=== PATIENT | male | born 1965 | race Caucasian/White ===

== ENCOUNTER 2018-11-04 10:16 | Emergency (ER) | payer OTHER ==
[2018-11-04] MEDS ORDERED: fentaNYL 100 MCG/2 ML SDV IVPUSH ONE (10:38)
[2018-11-04] MEDS ORDERED: Sodium Chloride 0.9% 1,000 ML IV ONE (10:38)
[2018-11-04] MEDS ORDERED: Ondansetron 4 MG/2 ML SDV IVPUSH ONE (10:38)
--- NOTE | 2018-11-04 10:49 | EDM.PDOC ---
ED HPI GENERAL MEDICAL PROBLEM - General Chief Complaint: Abdominal Pain Stated Complaint: RT LOWER STOMACH PAIN Time Seen by Provider: 11/04/18 10:21 Source of Information: Reports: Patient History Limitations: Reports: No Limitations - History of Present Illness INITIAL COMMENTS - FREE TEXT/NARRATIVE: HISTORY AND PHYSICAL: History of present illness: Presents reporting lower abdominal pain mostly in the right lower quadrant for the last 2-3 days. Also reports malaise, nausea but no vomiting and chills and hot flushes. 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 He had similar symptoms in March 2018. A CT scan of the abdomen and pelvis at that time indicated diverticulosis and fatty liver but no other acute or chronic findings. Also has a history of acid reflux which he manages with Tums. Review of systems: As per history of present illness and below otherwise all systems reviewed and negative. Past medical history: As per history of present illness and as reviewed below otherwise noncontributory. Surgical history: As per history of present illness and as reviewed below otherwise noncontributory. Social history: No reported history of drug or alcohol abuse. Family history: As per history of present illness and as reviewed below otherwise noncontributory. Physical exam: HEENT: Atraumatic, normocephalic, pupils reactive, negative for conjunctival pallor or scleral icterus, mucous membranes moist, throat clear, neck supple, nontender, trachea midline. Lungs: Clear to auscultation, breath sounds equal bilaterally, chest nontender. Heart: S1S2, regular, negative for clicks, rubs, or JVD. Abdomen: Soft, nondistended, nontender. Negative for masses or hepatosplenomegaly. Negative for costovertebral tenderness. Pelvis: Stable nontender. Genitourinary: Deferred. Rectal: Deferred. Extremities: Atraumatic, negative for cords or calf pain. Neurovascular unremarkable. Neuro: Awake, alert, oriented. Cranial nerves II through XII unremarkable. Cerebellum unremarkable. Motor and sensory unremarkable throughout. Exam nonfocal. Diagnostics: [] Therapeutics: [] Impression: [] Plan: [] Definitive disposition and diagnosis as appropriate pending reevaluation and review of above. Right abdominal Pain Score (Numeric/FACES): 8 - Related Data Allergies Allergy/AdvReac Type Severity Reaction Status Date / Time No Known Allergies Allergy Verified 11/04/18 10:24 Home Meds: Home Meds Ciprofloxacin HCl [Cipro] 1 tab PO BID #9 tablet 11/04/18 [Rx] metroNIDAZOLE [Metronidazole] 1 tab PO BID #9 tablet 11/04/18 [Rx] Past Medical History - Past Health History Medical/Surgical History: Denies Medical/Surgical History - Infectious Disease History Infectious Disease History: Reports: None Social & Family History - Family History Family Medical History: Noncontributory - Tobacco Use Smoking Status *Q: Current Every Day Smoker Years of Tobacco use: 30 Packs/Tins Daily: 0.5 - Caffeine Use Caffeine Use: Reports: Coffee - Recreational Drug Use Recreational Drug Use: No ED ROS GENERAL - Review of Systems Review Of Systems: ROS reveals no pertinent complaints other than HPI. ED EXAM, GI/ABD - Physical Exam Exam: See Below Exam Limited By: No Limitations General Appearance: Alert, No Apparent Distress Ears: Normal External Exam, Normal TMs Nose: Normal Inspection Throat/Mouth: Normal Inspection, Normal Teeth, Normal Oropharynx Head: Atraumatic, Normocephalic Neck: Normal Inspection Respiratory/Chest: No Respiratory Distress, Lungs Clear, Normal Breath Sounds Cardiovascular: Normal Peripheral Pulses, Regular Rate, Rhythm, No Murmur GI/Abdominal Exam: Normal Bowel Sounds, Soft, No Distention, Tender (Low midline of right lower quadrant) (Male) Exam: No Hernia, Normal Inspection Back Exam: Normal Inspection Extremities: Normal Inspection Neurological: Alert, Oriented Psychiatric: Normal Affect, Normal Mood Skin Exam: Warm, Dry, Intact, Normal Color, No Rash Lymphatic: No Adenopathy Course - Vital Signs Last Recorded V/S: Last Vital Signs Temp 36.2 C 11/04/18 12:14 Pulse 87 11/04/18 12:41 Resp 18 11/04/18 12:41 BP 154/93 H 11/04/18 12:41 Pulse Ox 98 11/04/18 12:41 - Orders/Labs/Meds Orders: Active Orders 24 hr Category Date Time Status Ciprofloxacin in D5W [Cipro in D5W 400 MG/200 ML] 400 Med 11/04/18 12:30 Ordered mg Premix Bag 1 bag IV Q12H metroNIDAZOLE/Normal Saline [Flagyl 500 MG in NS 100 ML Med 11/04/18 12:24 Ordered ] 500 mg Premix Bag 1 bag IV ONETIME Medication Orders Metronidazole 500 mg/ Premix 100 mls @ 100 mls/hr IV ONETIME ONE Stop: 11/04/18 13:23 Last Admin: 11/04/18 12:37 Dose: 100 mls/hr Ciprofloxacin/Dextrose 400 mg/ (Premix) 200 mls @ 200 mls/hr IV Q12H ONE Stop: 11/04/18 13:29 Labs: Laboratory Tests 11/04/18 11/04/18 11/04/18 Range/Units 10:38 10:38 10:45 WBC 17.50 H (4.0-11.0) K/uL RBC 4.73 (4.50-5.90) M/uL Hgb 16.0 (13.0-17.0) g/dL Hct 46.9 (38.0-50.0) % MCV 99.2 H (80.0-98.0) fL MCH 33.8 H (27.0-32.0) pg MCHC 34.1 (31.0-37.0) g/dL RDW Std Deviation 48.2 (28.0-62.0) fl RDW Coeff of Adamaris 13 (11.0-15.0) % Plt Count 224 (150-400) K/uL MPV 11.50 (7.40-12.00) fL Neut % (Auto) 82.9 H (48.0-80.0) % Lymph % (Auto) 9.1 L (16.0-40.0) % [place] % (Auto) 7.6 (0.0-15.0) % Eos % (Auto) 0.3 (0.0-7.0) % Baso % (Auto) 0.1 (0.0-1.5) % Neut # (Auto) 14.5 H (1.4-5.7) K/uL Lymph # (Auto) 1.6 (0.6-2.4) K/uL [place] # (Auto) 1.3 H (0.0-0.8) K/uL Eos # (Auto) 0.1 (0.0-0.7) K/uL Baso # (Auto) 0.0 (0.0-0.1) K/uL Nucleated RBC % 0.0 /100WBC Nucleated RBCs # 0 K/uL Sodium 138 (136-148) mmol/L Potassium 4.0 (3.5-5.1) mmol/L Chloride 104 (98-107) mmol/L Carbon Dioxide 23.6 (21.0-32.0) mmol/L BUN 8 (7.0-18.0) mg/dL Creatinine 1.0 (0.8-1.3) mg/dL Est Cr Clr Drug Dosing 80.79 mL/min Estimated GFR (MDRD) > 60.0 ml/min Glucose 132 H (74-106) mg/dL Calcium 9.4 (8.5-10.1) mg/dL Total Bilirubin 1.8 H (0.2-1.0) mg/dL AST 21 (15-37) IU/L ALT 39 (14-63) IU/L Alkaline Phosphatase 77 (46-116) U/L Total Protein 7.5 (6.4-8.2) g/dL Albumin 3.9 (3.4-5.0) g/dL Globulin 3.6 (2.6-4.0) g/dL Albumin/Globulin Ratio 1.1 (0.9-1.6) Urine Color YELLOW Urine Appearance CLEAR Urine pH 7.0 (5.0-8.0) Ur Specific [place] 1.010 (1.001-1.035) Urine Protein NEGATIVE (NEGATIVE) mg/dL Urine Glucose (UA) NEGATIVE (NEGATIVE) mg/dL Urine Ketones NEGATIVE (NEGATIVE) mg/dL Urine Occult Blood NEGATIVE (NEGATIVE) Urine Nitrite NEGATIVE (NEGATIVE) Urine Bilirubin NEGATIVE (NEGATIVE) Urine Urobilinogen 1.0 (<2.0) EU/dL Ur Leukocyte Esterase NEGATIVE (NEGATIVE) Urine RBC NONE SEEN (0-2/HPF) Urine WBC 1-2 (0-5/HPF) Ur Epithelial Cells RARE (NONE-FEW) Urine Bacteria FEW (NEGATIVE) Meds: Medications Generic Name Dose Route Start Last Admin Trade Name Freq PRN Reason Stop Dose Admin Metronidazole 500 mg/ Premix 100 mls @ 100 mls/hr 11/04/18 12:24 11/04/18 12: 37 IV 11/04/18 13:23 100 mls/hr ONETIME ONE Administration Ciprofloxacin/Dextrose 400 mg/ 200 mls @ 200 mls/hr 11/04/18 12:30 Premix IV 11/04/18 13:29 Q12H ONE Discontinued Medications Generic Name Dose Route Start Last Admin Trade Name Jose Gq PRN Reason Stop Dose Admin Fentanyl 50 mcg 11/04/18 10:38 11/04/18 10:47 Sublimaze IVPUSH 11/04/18 10:39 50 mcg ONETIME ONE Administration Sodium Chloride 1,000 mls @ 999 mls/hr 11/04/18 10:38 11/04/18 10:45 Normal Saline IV 11/04/18 11:38 999 mls/hr STAT ONE Administration Ondansetron HCl 4 mg 11/04/18 10:38 11/04/18 10:47 Zofran IVPUSH 11/04/18 10:39 4 mg ONETIME ONE Administration Departure - Departure Time of Disposition: 12:49 Disposition: Home, Self-Care 01 Clinical Impression: Diverticulitis - Discharge Information *PRESCRIPTION DRUG MONITORING PROGRAM REVIEWED*: Not Applicable *COPY OF PRESCRIPTION DRUG MONITORING REPORT IN PATIENT JOSE MARTIN: Not Applicable Referrals: PCP,Unknown [Primary Care Provider] - Robby Holman MD [Ordering Only Provider] - Forms: ED Department Discharge Additional Instructions: The following information is given to patients seen in the emergency department who are being discharged to home. This information is to outline your options for follow-up care. We provide all patients seen in our emergency department with a follow-up referral. The need for follow-up, as well as the timing and circumstances, are variable depending upon the specifics of your emergency department visit. If you don't have a primary care physician on staff, we will provide you with a referral. We always advise you to contact your personal physician following an emergency department visit to inform them of the circumstance of the visit and for follow-up with them and/or the need for any referrals to a consulting specialist. The emergency department will also refer you to a specialist when appropriate. This referral assures that you have the opportunity for follow-up care with a specialist. All of these measure are taken in an effort to provide you with optimal care, which includes your follow-up. Under all circumstances we always encourage you to contact your private physician who remains a resource for coordinating your care. When calling for follow-up care, please make the office aware that this follow-up is from your recent emergency room visit. If for any reason you are refused follow-up, please contact the [facility] Emergency Department at and asked to speak to the emergency department charge nurse. 1. Take your antibiotics twice daily 2. Return promptly for fevers, elevated heart rate, worsening or not improving pain 3. Follow-up in primary care for definitive management - My Orders Last 24 Hours: My Active Orders 11/04/18 12:24 metroNIDAZOLE/Normal Saline [Flagyl 500 MG in NS 100 ML] 500 mg Premix Bag 1 bag IV ONETIME 11/04/18 12:30 Ciprofloxacin in D5W [Cipro in D5W 400 MG/200 ML] 400 mg Premix Bag 1 bag IV Q12H - Assessment/Plan Last 24 Hours: My Active Orders 11/04/18 12:24 metroNIDAZOLE/Normal Saline [Flagyl 500 MG in NS 100 ML] 500 mg Premix Bag 1 bag IV ONETIME 11/04/18 12:30 Ciprofloxacin in D5W [Cipro in D5W 400 MG/200 ML] 400 mg Premix Bag 1 bag IV Q12H
[2018-11-04 11:14] LABS: BLOOD UREA NITROGEN,BUN 8 mg/dL (7.0-18.0); CARBON DIOXIDE,CO2 23.6 mmol/L (21.0-32.0); CHLORIDE,CL 104 mmol/L (98-107); GLUCOSE RANDOM 132 mg/dL (74-106); SODIUM,NA 138 mmol/L (136-148)
--- NOTE | 2018-11-04 12:13 | CT ---
INDICATION: Right lower quadrant pain for 2 days. Nausea, chills, difficulty urinating. COMPARISON: None available TECHNIQUE: CT examination of the abdomen and pelvis was performed without contrast enhancement using 3 mm thick axial sections from the lung bases through the pubic symphysis. Oral contrast was not administered. Please note that all CT scans at this facility use dose modulation, iterative reconstruction, and/or weight-based dosing when appropriate to reduce radiation dose to as low as reasonably achievable. FINDINGS: In the abdomen, the liver is low in density, representing fatty infiltration. There is no sign of mass. The spleen, pancreas and adrenals are normal in appearance. The unenhanced kidneys are normal in appearance. The gallbladder is normal in appearance. The abdominal aorta is normal in caliber with no sign of dilatation. There is no sign of retroperitoneal mass or adenopathy. The stomach, loops of small bowel, and right colon in the abdomen are normal in appearance. There is moderate diverticulosis of the descending colon. In the pelvis, the appendix is normal in appearance with no sign of inflammatory process. There is moderate inflammatory reaction around the midportion of the sigmoid colon, located to the right of midline in the upper pelvis, where there is moderate sigmoid diverticulosis. The findings are consistent with diverticulitis, without evidence of abscess formation or perforation. There is no sign of any fluid or extraluminal gas in the pericolonic fat. There is additional moderate sigmoid diverticulosis of the proximal sigmoid colon. The loops of small bowel and the rest of the colon in the pelvis are normal in appearance. The prostate is normal in appearance. The urinary bladder is normal in appearance. There is no sign of pelvic or inguinal mass or adenopathy. There is mild patchy dependent atelectasis in the posterior left lung base. The lung bases are otherwise clear. There is grade 1 anterior subluxation of L5 on S1 related to bilateral L5 pars interarticularis defects. There is moderate L5-S1 disc degenerative disease. There is mild L3-4 disc degenerative disease. The rest of the osseous structures are normal in appearance for the patient`s age. IMPRESSION: CT of the abdomen shows fatty infiltration of the liver. Moderate diverticulosis of the descending colon with no sign of diverticulitis. CT of the pelvis shows moderate diverticulitis of the mid portion of the sigmoid colon which is located to the right of midline. No sign of abscess or perforation. Moderate diverticulosis of the proximal and mid sigmoid colon. Normal appearance of the appendix. Please note that all CT scans at this facility use dose modulation, iterative reconstruction, and/or weight-based dosing when appropriate to reduce radiation dose to as low as reasonably achievable. Dictated by Gregorio Dodge MD @ Nov 04 2018 12:04PM Signed by Dr. Gregorio Dodge @ Nov 04 2018 12:11PM
[2018-11-04] MEDS ORDERED: metroNIDAZOLE/Normal Saline 500 MG in Premix Bag 1 BAG IV ONE (12:24)
[2018-11-04] MEDS ORDERED: Ciprofloxacin in D5W 400 MG in Premix Bag 1 BAG IV ONE ×2 (12:30)
== END 2018-11-04 15:07 | disposition home or self-care (01) ==
LOC: MW.ED 10:16
DX: K57.32 Diverticulitis of large intestine without perforation or abscess without bleeding (principal); F17.210 Nicotine dependence, cigarettes, uncomplicated
CPT/HCPCS: 36415; 74176; 80053; 81001; 85025; 96361; 96365; 96367; 96375; 99284; J0744; J2405; J3010; J3490; J7040; 99283

== ENCOUNTER 2018-11-05 13:11 | Inpatient (IN) | payer OTHER ==
[2018-11-05] MEDS ORDERED: Morphine 2 MG/ML Syringe IVPUSH ONE (13:32)
[2018-11-05] MEDS ORDERED: Sodium Chloride 0.9% 1,000 ML IV ONE (13:32)
--- NOTE | 2018-11-05 13:39 | EDM.PDOC ---
ED HPI GENERAL MEDICAL PROBLEM - General Chief Complaint: Abdominal Pain Stated Complaint: ABD PAIN Time Seen by Provider: 11/05/18 13:12 Source of Information: Reports: Patient History Limitations: Reports: No Limitations - History of Present Illness INITIAL COMMENTS - FREE TEXT/NARRATIVE: HISTORY AND PHYSICAL: History of present illness: Patient is a 52-year-old male presents to the ED today with worsening lower abdominal pain after a day diagnosis of diverticulitis when he was in the ED last night. Patient was given IV ciprofloxacin and metronidazole and discharged with by mouth antibiotics. Patient states his abdominal pain when he was seen yesterday with an 8 out of 10 and today his abdominal pain is worse and he rates it a 10 out of 10. Patient states yesterday he was still able to move around his house without difficulty but when he woke up this morning and has had difficulty sitting on the bed and moving around the house due to pain and discomfort. Patient states he's had issues with eating and drinking and some associative nausea which is unchanged from yesterday. Patient denies any new symptoms or any other symptoms. Patient denies any health history. Patient denies fever, chills, chest pain, shortness of breath, or cough. Denies headache, neck stiff ness, change in vision, syncope, or near syncope. Denies vomiting, diarrhea, constipation, or dysuria. Has not noted any blood in urine or stool. Review of systems: As per history of present illness and below otherwise all systems reviewed and negative. Past medical history: As per history of present illness and as reviewed below otherwise noncontributory. Surgical history: As per history of present illness and as reviewed below otherwise noncontributory. Social history: See social history for further information Family history: As per history of present illness and as reviewed below otherwise noncontributory. Physical exam: General: Patient is alert, oriented, and in no acute distress. Patient sitting comfortably on exam table. HEENT: Atraumatic, normocephalic, pupils equal and reactive bilaterally, negative for conjunctival pallor or scleral icterus, mucous membranes moist, TMs normal bilaterally, throat clear, neck supple, nontender, trachea midline. No drooling or trismus noted. No meningeal signs. No hot potato voice noted. Lungs: Clear to auscultation, breath sounds equal bilaterally, chest nontender. Heart: S1S2, regular rate and rhythm without overt murmur Abdomen: Soft, nondistended. Moderate-severe pain with palpation of lower abdomen without guarding or rebound. Negative for masses or hepatosplenomegaly. Negative for costovertebral tenderness. Pelvis: Stable nontender. Genitourinary: Deferred. Rectal: Deferred. Skin: Intact, warm, dry. No lesions or rashes noted. Extremities: Atraumatic, negative for cords or calf pain. Neurovascular unremarkable. Neuro: Awake, alert, oriented. Cranial nerves II through XII unremarkable. Cerebellum unremarkable. Motor and sensory unremarkable throughout. Exam nonfocal. Notes: Dr. Kimble directly involved in patient care. Dr. Jeffers / Dr. Granados was consult on patient and will admit to observation. Voices understanding and is agreeable to plan of care. Denies any further questions or concerns at this time. Diagnostics: CBC, CMP, lipase, UA, abd/pelvic with contrast Therapeutics: NS, Cipro, Flagyl, Morphine Impression: Diverticulitis Leukocytosis Plan: 1. Admit to observation to Dr. Jeffers / Dr. Granados. Definitive disposition and diagnosis as appropriate pending reevaluation and review of above. Abdominal Pain Score (Numeric/FACES): 10 - Related Data Allergies Allergy/AdvReac Type Severity Reaction Status Date / Time No Known Allergies Allergy Verified 11/05/18 13:18 Home Meds: Home Meds Ciprofloxacin HCl [Cipro] 1 tab PO BID #9 tablet 11/04/18 [Rx] metroNIDAZOLE [Metronidazole] 1 tab PO BID #9 tablet 11/04/18 [Rx] Past Medical History - Past Health History Medical/Surgical History: Denies Medical/Surgical History Gastrointestinal History: Reports: Diverticulosis Musculoskeletal History: Reports: Fracture - Infectious Disease History Infectious Disease History: Reports: Chicken Pox Social & Family History - Family History Family Medical History: Noncontributory - Tobacco Use Smoking Status *Q: Current Every Day Smoker Years of Tobacco use: 30 Packs/Tins Daily: 0.5 - Caffeine Use Caffeine Use: Reports: Coffee - Recreational Drug Use Recreational Drug Use: No ED ROS GENERAL - Review of Systems Review Of Systems: ROS reveals no pertinent complaints other than HPI. ED EXAM, GENERAL - Physical Exam Exam: See Below (See dictation) Course - Vital Signs Last Recorded V/S: Last Vital Signs Temp 36.7 C 11/05/18 13:18 Pulse 108 H 08/14/19 13:18 Resp 16 11/05/18 13:18 BP 128/90 11/05/18 13:18 Pulse Ox 95 11/05/18 13:18 - Orders/Labs/Meds Orders: Active Orders 24 hr Category Date Time Status Admission Status [Patient Status] [ADT] Stat ADT 11/05/18 14:11 Ordered Abdomen Pelvis w Cont [CT] Stat Exams 11/05/18 14:03 Stop Req Abdomen Pelvis w Cont [CT] Stat Exams 11/05/18 14:05 Ordered COMPREHENSIVE METABOLIC PN,CMP [CHEM] Stat Lab 11/05/18 13:41 Received LIPASE [CHEM] Stat Lab 11/05/18 13:41 Received UA RFX ALISIA AND CULT IF INDIC [URIN] Stat Lab 11/05/18 13:32 Ordered Sodium Chloride 0.9% [Normal Saline] 1,000 ml Med 11/05/18 13:32 Active IV BOLUS Medication Orders Sodium Chloride (Normal Saline) 1,000 mls @ 999 mls/hr IV BOLUS ONE Stop: 11/05/18 14:32 Last Admin: 11/05/18 14:05 Dose: 999 mls/hr Labs: Laboratory Tests 11/05/18 Range/Units 13:41 WBC 17.97 H (4.0-11.0) K/uL RBC 4.68 (4.50-5.90) M/uL Hgb 15.9 (13.0-17.0) g/dL Hct 46.8 (38.0-50.0) % MCV 100.0 H (80.0-98.0) fL MCH 34.0 H (27.0-32.0) pg MCHC 34.0 (31.0-37.0) g/dL RDW Std Deviation 48.6 (28.0-62.0) fl RDW Coeff of Adamaris 14 (11.0-15.0) % Plt Count 190 (150-400) K/uL MPV 11.00 (7.40-12.00) fL Neut % (Auto) 82.4 H (48.0-80.0) % Lymph % (Auto) 10.5 L (16.0-40.0) % [place] % (Auto) 6.8 (0.0-15.0) % Eos % (Auto) 0.2 (0.0-7.0) % Baso % (Auto) 0.1 (0.0-1.5) % Neut # (Auto) 14.8 H (1.4-5.7) K/uL Lymph # (Auto) 1.9 (0.6-2.4) K/uL [place] # (Auto) 1.2 H (0.0-0.8) K/uL Eos # (Auto) 0.0 (0.0-0.7) K/uL Baso # (Auto) 0.0 (0.0-0.1) K/uL Nucleated RBC % 0.0 /100WBC Nucleated RBCs # 0 K/uL Meds: Medications Generic Name Dose Route Start Last Admin Trade Name Freq PRN Reason Stop Dose Admin Sodium Chloride 1,000 mls @ 999 mls/hr 11/05/18 13:32 11/05/18 14:05 Normal Saline IV 11/05/18 14:32 999 mls/hr BOLUS ONE Administration Discontinued Medications Generic Name Dose Route Start Last Admin Trade Name Freq PRN Reason Stop Dose Admin Morphine Sulfate 2 mg 11/05/18 13:32 11/05/18 14:05 Morphine IVPUSH 11/05/18 13:33 2 mg ONETIME ONE Administration Departure - Departure Time of Disposition: 14:12 Disposition: Admitted As Inpatient 66 Clinical Impression: Diverticulitis Leukocytosis Qualifiers: Leukocytosis type: unspecified Qualified Code(s): D72.829 - Elevated white blood cell count, unspecified - Discharge Information - My Orders Last 24 Hours: My Active Orders 11/05/18 13:32 UA RFX ALISIA AND CULT IF INDIC [URIN] Stat Sodium Chloride 0.9% [Normal Saline] 1,000 ml IV BOLUS 11/05/18 13:41 COMPREHENSIVE METABOLIC PN,CMP [CHEM] Stat LIPASE [CHEM] Stat 11/05/18 14:05 Abdomen Pelvis w Cont [CT] Stat 11/05/18 14:11 Admission Status [Patient Status] [ADT] Stat - Assessment/Plan Last 24 Hours: My Active Orders 11/05/18 13:32 UA RFX ALISIA AND CULT IF INDIC [URIN] Stat Sodium Chloride 0.9% [Normal Saline] 1,000 ml IV BOLUS 11/05/18 13:41 COMPREHENSIVE METABOLIC PN,CMP [CHEM] Stat LIPASE [CHEM] Stat 11/05/18 14:05 Abdomen Pelvis w Cont [CT] Stat 11/05/18 14:11 Admission Status [Patient Status] [ADT] Stat
[2018-11-05 14:13] LABS: CHLORIDE,CL 106 mmol/L (98-107); SODIUM,NA 141 mmol/L (136-148)
[2018-11-05] MEDS ORDERED: Morphine 10 MG/ML Syringe IVPUSH PRN (14:36)
[2018-11-05] MEDS ORDERED: Sodium Chloride 0.9% 2.5 ML Syringe FLUSH PRN (14:36)
[2018-11-05] MEDS ORDERED: Ondansetron 4 MG/2 ML SDV IVPUSH PRN (14:36)
--- NOTE | 2018-11-05 14:46 | PCM.HP.2 ---
<Suzie Uriostegui M - Last Filed: 11/05/18 16:43> H&P History of Present Illness - General Date of Service: 11/05/18 Admit Problem/Dx: Admission Diagnosis/Problem Admission Diagnosis/Problem Diverticulitis Source of Information: Patient History Limitations: Reports: No Limitations - History of Present Illness Initial Comments - Free Text/Narative: This 52 year old male with pmh of tobacco use and weekly alcohol use presented to the ED today for worsening abdominal pain. He was seen yesterday in the ED and diagnoses with diverticulitis. He was given IV Ciprofloxacin and Flagyl. he was discharged home. He returns today reporting his pain is worse and can barely walk around the house due to the severity of pain. It is located in his right to mid abdomen. He reports intermittent nausea no vomiting. He reports diarrhea, denies it being black or bloody. He reports chills at home. Denies chest pain or shortness of breath. He does report mild lower bilateral shoulder pain which is new from yesterday. Denies urinary symptoms. He reports smoking 1/ 2-1 ppd, 3-4 beers and a shot of whiskey every couple days. He denies withdrawal from alcohol. No history of CAD or DM. Reports BP elevation but has never been treated with medication for this. Denies history of colonoscopy. In the ED leukocytosis of 17,970 noted, BMP WNL. Bili slightly elevated at 1.3. CT of abd and pelvis from 11/04 revealed moderate diverticulitis with the mid porition of the sigmoid colol which is located to the right of midline, no sign of abscess or perforation. Dr Jeffers consulted on this case in the ED, will like repeat imaging with contrast. Hospitalist to admit inpatient for acute sigmoid diverticulitis Abdominal Pain Score (Numeric/FACES): 10 - Related Data Allergies/Adverse Reactions: Allergies Allergy/AdvReac Type Severity Reaction Status Date / Time No Known Allergies Allergy Verified 11/06/18 04:43 Home Medications: Home Meds Ciprofloxacin HCl [Cipro] 1 tab PO BID #9 tablet 11/04/18 [Rx] metroNIDAZOLE [Metronidazole] 1 tab PO BID #9 tablet 11/04/18 [Rx] Past Medical History - Past Health History Medical/Surgical History: Denies Medical/Surgical History Cardiovascular History: Reports: None, Hypertension (slightly elevated, but never treated). Denies: Blood Clots/VTE/DVT, CAD, High Cholesterol, [place] Respiratory History: Reports: None. Denies: COPD Gastrointestinal History: Reports: Diverticulosis Genitourinary History: Reports: None. Denies: Acute Renal Failure Musculoskeletal History: Reports: Fracture Neurological History: Reports: None. Denies: CVA, TIA Endocrine/Metabolic History: Reports: Obesity/BMI 30+. Denies: Diabetes, Type II - Infectious Disease History Infectious Disease History: Reports: Chicken Pox - Past Surgical History Respiratory Surgical History: Reports: None GI Surgical History: Reports: None Endocrine Surgical History: Reports: None Social & Family History - Family History Family Medical History: Noncontributory - Tobacco Use Smoking Status *Q: Current Every Day Smoker Years of Tobacco use: 30 Packs/Tins Daily: 0.5 - Caffeine Use Caffeine Use: Reports: Coffee - Alcohol Use Alcohol Use History: Yes Days Per Week of Alcohol Use: 3 Number of Drinks Per Day: 4 Total Drinks Per Week: 12 Alcohol Use Frequency: Daily - Recreational Drug Use Recreational Drug Use: No - Living Situation & Occupation Occupation: Employed H&P Review of Systems - Review of Systems: Review Of Systems: See Below General: Reports: Chills, Malaise. Denies: Fever HEENT: Reports: No Symptoms. Denies: Headaches, Sinus Congestion, Sore Throat Pulmonary: Reports: No Symptoms. Denies: Shortness of Breath Cardiovascular: Reports: No Symptoms. Denies: Chest Pain Gastrointestinal: Reports: Abdominal Pain, Diarrhea (watery), Decreased Appetite , Nausea. Denies: Black Stool, Bloody Stool, Vomiting Genitourinary: Reports: No Symptoms. Denies: Dysuria, Frequency, Burning Skin: Reports: No Symptoms Psychiatric: Reports: No Symptoms Neurological: Reports: No Symptoms Hematologic/Lymphatic: Reports: No Symptoms Immunologic: Reports: No Symptoms Exam - Exam Exam: See Below - Vital Signs Vital Signs: Last Vital Signs Temp 98.1 F 11/05/18 13:18 Pulse 72 11/05/18 14:25 Resp 18 11/05/18 14:25 BP 109/65 11/05/18 14:25 Pulse Ox 97 11/05/18 14:25 Weight: 115.666 kg - Exam General: Alert, Oriented, Cooperative HEENT: Conjunctiva Clear, Mucosa Moist & [place], Posterior Pharynx Clear Neck: Supple Lungs: Clear to Auscultation, Normal Respiratory Effort Cardiovascular: Regular Rate, Regular Rhythm, Normal S1, Normal S2 GI/Abdominal Exam: Soft, Tender (RLQ and R midline. ). No: Normal Bowel Sounds (hypoactive), Rebound Extremities: Normal Inspection, Normal Range of Motion, Non-Tender Neuro Extensive - Mental Status: Alert, Oriented x3 Neuro Extensive - Motor, Sensory, Reflexes: CN II-XII Intact Psychiatric: Alert, Normal Affect, Normal Mood - Patient Data Lab Results Last 24 hrs: Laboratory Results - last 24 hr 11/05/18 11/05/18 Range/Units 13:41 13:41 WBC 17.97 H (4.0-11.0) K/uL RBC 4.68 (4.50-5.90) M/uL Hgb 15.9 (13.0-17.0) g/dL Hct 46.8 (38.0-50.0) % MCV 100.0 H (80.0-98.0) fL MCH 34.0 H (27.0-32.0) pg MCHC 34.0 (31.0-37.0) g/dL RDW Std Deviation 48.6 (28.0-62.0) fl RDW Coeff of Adamaris 14 (11.0-15.0) % Plt Count 190 (150-400) K/uL MPV 11.00 (7.40-12.00) fL Neut % (Auto) 82.4 H (48.0-80.0) % Lymph % (Auto) 10.5 L (16.0-40.0) % Dougherty % (Auto) 6.8 (0.0-15.0) % Eos % (Auto) 0.2 (0.0-7.0) % Baso % (Auto) 0.1 (0.0-1.5) % Neut # (Auto) 14.8 H (1.4-5.7) K/uL Lymph # (Auto) 1.9 (0.6-2.4) K/uL Dougherty # (Auto) 1.2 H (0.0-0.8) K/uL Eos # (Auto) 0.0 (0.0-0.7) K/uL Baso # (Auto) 0.0 (0.0-0.1) K/uL Nucleated RBC % 0.0 /100WBC Nucleated RBCs # 0 K/uL Sodium 141 (136-148) mmol/L Potassium 4.2 (3.5-5.1) mmol/L Chloride 106 (98-107) mmol/L Carbon Dioxide 23.5 (21.0-32.0) mmol/L BUN 8 (7.0-18.0) mg/dL Creatinine 1.0 (0.8-1.3) mg/dL Est Cr Clr Drug Dosing 80.79 mL/min Estimated GFR (MDRD) > 60.0 ml/min Glucose 97 (74-106) mg/dL Calcium 9.2 (8.5-10.1) mg/dL Total Bilirubin 1.3 H (0.2-1.0) mg/dL AST 17 (15-37) IU/L ALT 31 (14-63) IU/L Alkaline Phosphatase 70 (46-116) U/L Total Protein 7.2 (6.4-8.2) g/dL Albumin 3.6 (3.4-5.0) g/dL Globulin 3.6 (2.6-4.0) g/dL Albumin/Globulin Ratio 1.0 (0.9-1.6) Lipase 65 L (73-393) U/L Result Diagrams: 11/05/18 13:41 11/05/18 13:41 - Problem List (2) Sigmoid diverticulitis SNOMED Code(s): 664222425 ICD Code: K57.32 - DVTRCLI OF LG INT W/O PERFORATION OR ABSCESS W/O BLEEDING Status: Acute Current Visit: Yes Problem List Initiated/Reviewed/Updated: Yes Orders Last 24hrs: Active Orders 24 hr Category Date Time Status Admission Status [Patient Status] [ADT] Stat ADT 11/05/18 14:11 Active Intake and Output [RC] QSHIFT Care 11/05/18 14:36 Ordered May Shower [RC] ASDIRECTED Care 11/05/18 14:36 Ordered Notify Provider Consults [RC] ASDIRECTED Care 11/05/18 14:39 Ordered Oxygen Therapy [RC] PRN Care 11/05/18 14:36 Ordered Up ad Echo [RC] ASDIRECTED Care 11/05/18 14:36 Ordered VTE/DVT Education [RC] PER UNIT ROUTINE Care 11/05/18 14:36 Ordered Vital Signs [RC] Q4H Care 11/05/18 14:36 Ordered Consult to Physician [CONS] Routine Cons 11/05/18 14:36 Ordered Nothing Per Oral Diet [DIET] Diet 11/05/18 Dinner Ordered Abdomen Pelvis w Cont [CT] Stat Exams 11/05/18 14:05 Ordered CBC WITH AUTO DIFF [HEME] AM Lab 11/06/18 05:11 Ordered CBC WITH AUTO DIFF [HEME] AM Lab 11/07/18 05:11 Ordered CBC WITH AUTO DIFF [HEME] AM Lab 11/08/18 05:11 Ordered COMPREHENSIVE METABOLIC PN,CMP [CHEM] AM Lab 11/06/18 05:11 Ordered COMPREHENSIVE METABOLIC PN,CMP [CHEM] AM Lab 11/07/18 05:11 Ordered COMPREHENSIVE METABOLIC PN,CMP [CHEM] AM Lab 11/08/18 05:11 Ordered UA RFX KVNG AND CULT IF INDIC [URIN] Stat Lab 11/05/18 13:32 Ordered Levofloxacin/Dextrose 5%-Water [Levaquin in D5W 750 MG/ Med 11/05/18 14:45 Ordered 150 ML] 750 mg Premix Bag 1 bag IV Q24H Morphine Med 11/05/18 14:36 Ordered 3 mg IVPUSH Q2H PRN Ondansetron [Zofran] Med 11/05/18 14:36 Ordered 4 mg IVPUSH Q4H PRN Sodium Chloride 0.9% @ 125 MLS/HR (1000ml) Med 11/05/18 14:45 Ordered Sodium Chloride 0.9% [Normal Saline] 1,000 ml IV ASDIRECTED Sodium Chloride 0.9% [Saline Flush] Med 11/05/18 14:36 Ordered 2.5 ml FLUSH ASDIRECTED PRN metroNIDAZOLE/Normal Saline [Flagyl 500 MG in NS 100 ML Med 11/05/18 15:00 Ordered ] 500 mg Premix Bag 1 bag IV QID Saline Lock Insert [OM.PC] Routine Oth 11/05/18 14:36 Ordered Resuscitation Status Routine Resus Stat 11/05/18 14:36 Ordered Medication Orders Levofloxacin/Dextrose 750 mg/ (Premix) 150 mls @ 100 mls/hr IV Q24H NISH Metronidazole 500 mg/ Premix 100 mls @ 100 mls/hr IV QID NISH Sodium Chloride (Normal Saline) 1,000 mls @ 125 mls/hr IV ASDIRECTED NISH Morphine Sulfate (Morphine) 3 mg IVPUSH Q2H PRN PRN Reason: Pain (severe 7-10) Ondansetron HCl (Zofran) 4 mg IVPUSH Q4H PRN PRN Reason: Nausea Sodium Chloride (Saline Flush) 2.5 ml FLUSH ASDIRECTED PRN PRN Reason: Keep Vein Open Assessment/Plan Comment:: This 52 year old male admitted with acute sigmoid diverticulitis 1. Sigmoid diverticulitis: Will repeat CT with contrast to re-evaluate due to worsening pain. Will obtain BC. Start Levaquin and Flagyl. NS at 125. Bowel rest. Morphine for pain PRN. Zofran PRN nausea. Consult Dr Jeffers, I appreciate his assistance with this case. 2. Hx alcohol abuse: no hx of withdrawal. Will supplement with folic acid and thiamine. CIWAA protocol. 3. Tobacco use: counseled on cessation, declines nicotine patch. VTE prophylaxis: Lovenox. Dispo: 2-3 days pending improvement. - Mortality Measure Prognosis:: Good <Guicho Granados - Last Filed: 11/06/18 08:18> H&P History of Present Illness - General Admit Problem/Dx: Admission Diagnosis/Problem Admission Diagnosis/Problem Diverticulitis I have examined the patient independently of Suzie Uriostegui CNP. I have discussed the case with her. I have reviewed and agree with the examination and plan as outlined by her. Please see orders. Exam - Vital Signs Vital Signs: Last Vital Signs Temp 36.3 C 11/06/18 04:00 Pulse 73 11/06/18 04:00 Resp 16 11/06/18 04:00 BP 125/76 11/06/18 04:00 Pulse Ox 95 11/06/18 04:00 - Patient Data Lab Results Last 24 hrs: Laboratory Results - last 24 hr 11/05/18 11/05/18 11/05/18 Range/Units 13:41 13:41 16:50 WBC 17.97 H (4.0-11.0) K/uL RBC 4.68 (4.50-5.90) M/uL Hgb 15.9 (13.0-17.0) g/dL Hct 46.8 (38.0-50.0) % MCV 100.0 H (80.0-98.0) fL MCH 34.0 H (27.0-32.0) pg MCHC 34.0 (31.0-37.0) g/dL RDW Std Deviation 48.6 (28.0-62.0) fl RDW Coeff of Adamaris 14 (11.0-15.0) % Plt Count 190 (150-400) K/uL MPV 11.00 (7.40-12.00) fL Neut % (Auto) 82.4 H (48.0-80.0) % Lymph % (Auto) 10.5 L (16.0-40.0) % Dougherty % (Auto) 6.8 (0.0-15.0) % Eos % (Auto) 0.2 (0.0-7.0) % Baso % (Auto) 0.1 (0.0-1.5) % Neut # (Auto) 14.8 H (1.4-5.7) K/uL Lymph # (Auto) 1.9 (0.6-2.4) K/uL Dougherty # (Auto) 1.2 H (0.0-0.8) K/uL Eos # (Auto) 0.0 (0.0-0.7) K/uL Baso # (Auto) 0.0 (0.0-0.1) K/uL Nucleated RBC % 0.0 /100WBC Nucleated RBCs # 0 K/uL Sodium 141 (136-148) mmol/L Potassium 4.2 (3.5-5.1) mmol/L Chloride 106 (98-107) mmol/L Carbon Dioxide 23.5 (21.0-32.0) mmol/L BUN 8 (7.0-18.0) mg/dL Creatinine 1.0 (0.8-1.3) mg/dL Est Cr Clr Drug Dosing 80.79 mL/min Estimated GFR (MDRD) > 60.0 ml/min Glucose 97 (74-106) mg/dL Calcium 9.2 (8.5-10.1) mg/dL Total Bilirubin 1.3 H (0.2-1.0) mg/dL AST 17 (15-37) IU/L ALT 31 (14-63) IU/L Alkaline Phosphatase 70 (46-116) U/L Total Protein 7.2 (6.4-8.2) g/dL Albumin 3.6 (3.4-5.0) g/dL Globulin 3.6 (2.6-4.0) g/dL Albumin/Globulin Ratio 1.0 (0.9-1.6) Lipase 65 L (73-393) U/L Urine Color YELLOW Urine Appearance CLEAR Urine pH 6.0 (5.0-8.0) Ur Specific [place] 1.010 (1.001-1.035) Urine Protein NEGATIVE (NEGATIVE) mg/dL Urine Glucose (UA) NEGATIVE (NEGATIVE) mg/dL Urine Ketones NEGATIVE (NEGATIVE) mg/dL Urine Occult Blood NEGATIVE (NEGATIVE) Urine Nitrite NEGATIVE (NEGATIVE) Urine Bilirubin NEGATIVE (NEGATIVE) Urine Urobilinogen 1.0 (<2.0) EU/dL Ur Leukocyte Esterase NEGATIVE (NEGATIVE) 11/06/18 11/06/18 Range/Units 05:50 05:50 WBC 14.47 H (4.0-11.0) K/uL RBC 4.47 L (4.50-5.90) M/uL Hgb 15.0 (13.0-17.0) g/dL Hct 45.0 (38.0-50.0) % MCV 100.7 H (80.0-98.0) fL MCH 33.6 H (27.0-32.0) pg MCHC 33.3 (31.0-37.0) g/dL RDW Std Deviation 49.9 (28.0-62.0) fl RDW Coeff of Adamaris 14 (11.0-15.0) % Plt Count 189 (150-400) K/uL MPV 11.10 (7.40-12.00) fL Neut % (Auto) 75.6 (48.0-80.0) % Lymph % (Auto) 14.6 L (16.0-40.0) % Dougherty % (Auto) 9.1 (0.0-15.0) % Eos % (Auto) 0.6 (0.0-7.0) % Baso % (Auto) 0.1 (0.0-1.5) % Neut # (Auto) 10.9 H (1.4-5.7) K/uL Lymph # (Auto) 2.1 (0.6-2.4) K/uL Dougherty # (Auto) 1.3 H (0.0-0.8) K/uL Eos # (Auto) 0.1 (0.0-0.7) K/uL Baso # (Auto) 0.0 (0.0-0.1) K/uL Nucleated RBC % 0.0 /100WBC Nucleated RBCs # 0 K/uL Sodium 139 (136-148) mmol/L Potassium 4.7 (3.5-5.1) mmol/L Chloride 106 (98-107) mmol/L Carbon Dioxide 28.0 (21.0-32.0) mmol/L BUN 9 (7.0-18.0) mg/dL Creatinine 1.0 (0.8-1.3) mg/dL Est Cr Clr Drug Dosing 80.59 mL/min Estimated GFR (MDRD) > 60.0 ml/min Glucose 110 H (74-106) mg/dL Calcium 8.9 (8.5-10.1) mg/dL Total Bilirubin 1.5 H (0.2-1.0) mg/dL AST 14 L (15-37) IU/L ALT 28 (14-63) IU/L Alkaline Phosphatase 59 (46-116) U/L Total Protein 6.6 (6.4-8.2) g/dL Albumin 3.1 L (3.4-5.0) g/dL Globulin 3.5 (2.6-4.0) g/dL Albumin/Globulin Ratio 0.9 (0.9-1.6) Lipase (73-393) U/L Urine Color Urine Appearance Urine pH (5.0-8.0) Ur Specific [place] (1.001-1.035) Urine Protein (NEGATIVE) mg/dL Urine Glucose (UA) (NEGATIVE) mg/dL Urine Ketones (NEGATIVE) mg/dL Urine Occult Blood (NEGATIVE) Urine Nitrite (NEGATIVE) Urine Bilirubin (NEGATIVE) Urine Urobilinogen (<2.0) EU/dL Ur Leukocyte Esterase (NEGATIVE) Result Diagrams: 11/06/18 05:50 11/06/18 05:50 Kvng Results Last 24 hrs: Microbiology 11/05/18 15:26 Anaerobic Blood Culture - Final Blood - Venous - Lab Draw Orders Last 24hrs: Active Orders 24 hr Category Date Time Status Admission Status [Patient Status] [ADT] Stat ADT 11/05/18 14:11 Active Intake and Output [RC] QSHIFT Care 11/05/18 14:36 Active May Shower [RC] ASDIRECTED Care 11/05/18 14:36 Active Notify Provider Consults [RC] ASDIRECTED Care 11/05/18 14:39 Active Oxygen Therapy [RC] PRN Care 11/05/18 14:36 Active Up ad Echo [RC] ASDIRECTED Care 11/05/18 14:36 Active VTE/DVT Education [RC] PER UNIT ROUTINE Care 11/05/18 14:36 Active Vital Signs [RC] Q4H Care 11/05/18 14:36 Active Consult to Physician [CONS] Routine Cons 11/05/18 14:36 Active Nothing Per Oral Diet [DIET] Diet 11/05/18 Dinner Active CBC WITH AUTO DIFF [HEME] AM Lab 11/07/18 05:11 Ordered CBC WITH AUTO DIFF [HEME] AM Lab 11/08/18 05:11 Ordered COMPREHENSIVE METABOLIC PN,CMP [CHEM] AM Lab 11/07/18 05:11 Ordered COMPREHENSIVE METABOLIC PN,CMP [CHEM] AM Lab 11/08/18 05:11 Ordered CULTURE BLOOD [BC] Stat Lab 11/05/18 15:16 Received CULTURE BLOOD [BC] Stat Lab 11/05/18 15:26 Results Enoxaparin [Lovenox] Med 11/06/18 08:15 Active 40 mg SUBCUT Q24H Folic Acid Med 11/05/18 15:10 Active 1 mg SUBCUT DAILY Levofloxacin/Dextrose 5%-Water [Levaquin in D5W 750 MG/ Med 11/05/18 14:45 Active 150 ML] 750 mg Premix Bag 1 bag IV Q24H Morphine Med 11/05/18 17:56 Active 2 mg IVPUSH Q2H PRN Morphine Med 11/05/18 14:36 Active 3 mg IVPUSH Q2H PRN Ondansetron [Zofran] Med 11/05/18 14:36 Active 4 mg IVPUSH Q4H PRN Sodium Chloride 0.9% [Normal Saline] 1,000 ml Med 11/05/18 14:45 Active IV ASDIRECTED Sodium Chloride 0.9% [Saline Flush] Med 11/05/18 14:36 Active 2.5 ml FLUSH ASDIRECTED PRN Thiamine [Vitamin B-1] Med 11/05/18 15:10 Active 100 mg IV DAILY metroNIDAZOLE/Normal Saline [Flagyl 500 MG in NS 100 ML Med 11/06/18 00:00 Active ] 500 mg Premix Bag 1 bag IV QID Blood Culture x2 Reflex Set [OM.PC] Stat Ot 11/05/18 15:09 Ordered Isolation [COMM] Stat Oth 11/05/18 14:54 Ordered Saline Lock Insert [OM.PC] Routine Oth 11/05/18 14:36 Ordered Resuscitation Status Routine Resus Stat 11/05/18 14:36 Ordered Medication Orders Enoxaparin Sodium (Lovenox) 40 mg SUBCUT Q24H [facility] Folic Acid (Folic Acid) 1 mg SUBCUT DAILY [facility] Last Admin: 11/05/18 16:36 Dose: 1 mg Levofloxacin/Dextrose 750 mg/ (Premix) 150 mls @ 100 mls/hr IV Q24H [facility] Last Admin: 11/05/18 15:39 Dose: 100 mls/hr Sodium Chloride (Normal Saline) 1,000 mls @ 125 mls/hr IV ASDIRECTED [facility] Last Admin: 11/06/18 03:54 Dose: 125 mls/hr Infusion: 11/06/18 01:00 Dose: 125 mls/hr Admin: 11/05/18 17:00 Dose: 125 mls/hr Metronidazole 500 mg/ Premix 100 mls @ 100 mls/hr IV QID [facility] Last Admin: 11/06/18 06:11 Dose: 100 mls/hr Infusion: 11/06/18 01:30 Dose: 100 mls/hr Admin: 11/06/18 00:30 Dose: 100 mls/hr Morphine Sulfate (Morphine) 3 mg IVPUSH Q2H PRN PRN Reason: Pain (severe 7-10) Morphine Sulfate (Morphine) 2 mg IVPUSH Q2H PRN PRN Reason: Pain Last Admin: 11/05/18 22:23 Dose: 2 mg Admin: 11/05/18 19:05 Dose: 2 mg Ondansetron HCl (Zofran) 4 mg IVPUSH Q4H PRN PRN Reason: Nausea Sodium Chloride (Saline Flush) 2.5 ml FLUSH ASDIRECTED PRN PRN Reason: Keep Vein Open Thiamine HCl (Vitamin B-1) 100 mg IV DAILY [facility] Last Admin: 11/05/18 17:05 Dose: 100 mg
--- NOTE | 2018-11-05 14:46 | PCM.SN ---
- Free Text/Narrative Note: pt seen, chart reviewed, cx dictated [id number]; repeat CT a/p w po/iv contrast, use water soluble contrast, for increase in pain; await studies
[2018-11-05] MEDS ORDERED: metroNIDAZOLE/Normal Saline 500 MG in Premix Bag 1 BAG IV SCH (15:00)
[2018-11-05] MEDS ORDERED: LORazepam 2 MG/ML SDV IVPUSH PRN (15:10)
[2018-11-05] MEDS: Levofloxacin/Dextrose 5%-Water 750 MG in Premix Bag 1 BAG IV SCH (15:39)
[2018-11-05] MEDS: Folic Acid 50 MG/10 ML MDV SUBCUT SCH (16:36)
[2018-11-05] MEDS: Sodium Chloride 0.9% 1,000 ML IV SCH (17:00)
[2018-11-05] MEDS: Thiamine 200 MG/2 ML MDV IV SCH (17:05)
--- NOTE | 2018-11-05 17:41 | CT ---
INDICATION: Abdominal pain. COMPARISON: CT of the abdomen and pelvis without contrast from yesterday TECHNIQUE: CT examination of the abdomen and pelvis was performed with the uneventful intravenous administration of 100 cc of Isovue 370 while 3 mm thick axial sections were obtained from the lung bases through the pubic symphysis. Oral contrast was administered. Please note that all CT scans at this facility use dose modulation, iterative reconstruction, and/or weight-based dosing when appropriate to reduce radiation dose to as low as reasonably achievable. FINDINGS: In the abdomen, the liver is again seen to be low in density, representing fatty infiltration. There is no sign of mass. The spleen, pancreas and adrenals are normal in appearance. The kidneys are normal in appearance. The gallbladder is normal in appearance. The abdominal aorta is normal in caliber with no sign of dilatation. There is no sign of retroperitoneal mass or adenopathy. The stomach, loops of small bowel, and right colon in the abdomen are normal in appearance. There is no change in moderate diverticulosis of the descending colon with no sign of diverticulitis. In the pelvis, the appendix is normal in appearance with no sign of inflammatory process. The loops of small bowel in the pelvis are normal in appearance. There is increased inflammatory reaction around the midportion of the sigmoid colon with new extraluminal gas, findings of perforated diverticulitis. There is no sign of any fluid adjacent to the colon to suggest an abscess. These changes are located to the right of midline. There is a tiny amount of free fluid in the pelvis, increased compared to the previous study, consistent with the diverticulitis. There continues to be moderate diverticulosis of the proximal and mid sigmoid colon. The prostate is normal in appearance. The urinary bladder is normal in appearance. There is no sign of pelvic or inguinal mass or adenopathy. There is no change in minimal patchy atelectasis in the posterior left lung base. The rest of the lung bases is clear. There is no change in grade 1 anterior subluxation of L5 on S1 related to bilateral pars interarticularis defects. There is no change in moderate L5-S1 disc degenerative disease. There is no change in mild L3-4 disc degenerative disease. IMPRESSION: CT of the abdomen shows fatty infiltration of the liver. No change in moderate diverticulosis of the descending colon with no sign of diverticulitis. CT of the pelvis shows worsening of acute diverticulitis involving the mid portion of the sigmoid colon to the right of midline. There is now prominent inflammatory reaction with extraluminal gas consistent with perforation. No sign of an abscess. Again seen is moderate diverticulosis of the proximal and mid sigmoid colon. Tiny amount of free fluid in the pelvis, increased compared to the previous study. Please note that all CT scans at this facility use dose modulation, iterative reconstruction, and/or weight-based dosing when appropriate to reduce radiation dose to as low as reasonably achievable. Dictated by Gregorio Dodge MD @ Nov 05 2018 5:32PM Signed by Dr. Gregorio Dodge @ Nov 05 2018 5:41PM
[2018-11-05] MEDS: Morphine 2 MG/ML Syringe IVPUSH PRN ×2 (19:05→22:23)
--- NOTE | 2018-11-05 19:45 | CONS ---
DATE OF CONSULTATION: 11/05/2018 DATE OF : 1965 PRIMARY CARE PHYSICIAN: None PCP REASON FOR CONSULTATION: Consult was called, the patient was seen shortly after, concerning question is diverticulitis. HISTORY OF PRESENT ILLNESS: The patient is a 52-year-old gentleman and morbid obesity with a BMI of 40, seen today with worsening lower abdominal pain. The patient was seen the day before in the emergency room with a diagnosis of diverticulitis and a white count of 17.5, and the patient returned today, complained the pain is much worse, but denied any radiation to either shoulder. Denied prior episode. PAST MEDICAL HISTORY: Significant for no diabetes, NH, CVA, hypertension. PAST SURGICAL HISTORY: No abdominal surgery. ALLERGIES: Please refer to nursing for details. MEDICATIONS: Please refer to nursing for details. PHYSICAL EXAMINATION: GENERAL: A gentleman, who was able to walk by himself in and out of the , but complaining a lot of pain. HEENT: Normocephalic, atraumatic. Sclerae are anicteric. LUNGS: Clear to auscultation. HEART: Regular rate and rhythm. ABDOMEN: Soft, but guarding and tenderness at the right suprapubic and a little bit tenderness on the left side too. LABORATORY DATA: Today, 17.8 and platelet is 190. Potassium 4.2. BUN 8, creatinine 1.0. Total bilirubin is high at 1.8 yesterday and today is 1.3. UA yesterday no signs or symptoms of urinary tract infection. DIAGNOSTIC DATA: A CAT scan report yesterday, diverticulosis on the left colon, diverticulitis on the sigmoid with no perforation, abscess. IMPRESSION: With increase in pain, concern about either abscess formation or microperforation. The patient would benefit from repeat CAT scan of abdomen and pelvis with p.o. and IV contrast, use a water-soluble contrast, serial abdominal exam, and IV antibiotic with Levaquin and Flagyl. Most of the time, the patients respond to IV antibiotic and we will switch to oral antibiotic and we will have a followup colonoscopy in 6 to 8 weeks that was communicated with the patient, and we will follow the patient with you. CANDI / HILLARY /[id number]
[2018-11-06] MEDS: metroNIDAZOLE/Normal Saline 500 MG in Premix Bag 1 BAG IV SCH ×5 (00:30→23:44)
[2018-11-06] MEDS: Sodium Chloride 0.9% 1,000 ML IV SCH ×3 (03:54→23:43)
[2018-11-06 06:24] LABS: CHLORIDE,CL 106 mmol/L (98-107); SODIUM,NA 139 mmol/L (136-148)
--- NOTE | 2018-11-06 08:13 | PCM.PN ---
<Suzie Uriostegui M - Last Filed: 11/06/18 08:07> - General Info Date of Service: 11/06/18 Admission Dx/Problem (Free Text): Admission Diagnosis/Problem Admission Diagnosis/Problem Diverticulitis Subjective Update: Feeling better today, mild pain remains but much improved from yesterday. Reports he can ambulate without significant pain, as yesterday walking caused severe worsening of pain. Denies nausea or vomiting. No further diarrhea. No chest pain or SOB. Reports no appetite. Functional Status: Reports: Pain Controlled, Ambulating, Urinating - Review of Systems General: Reports: No Symptoms. Denies: Fever, Weakness HEENT: Reports: No Symptoms. Denies: Ear Pain, Headaches, Sore Throat Pulmonary: Reports: No Symptoms. Denies: Shortness of Breath Cardiovascular: Reports: No Symptoms. Denies: Chest Pain Gastrointestinal: Reports: Abdominal Pain (mild 1-3/10), Flatus. Denies: Diarrhea, Nausea, Vomiting Genitourinary: Reports: No Symptoms Musculoskeletal: Reports: No Symptoms Skin: Reports: No Symptoms Neurological: Reports: No Symptoms Psychiatric: Reports: No Symptoms - Patient Data Vitals - Most Recent: Last Vital Signs Temp 97.3 F 11/06/18 04:00 Pulse 73 11/06/18 04:00 Resp 16 11/06/18 04:00 BP 125/76 11/06/18 04:00 Pulse Ox 95 11/06/18 04:00 Weight - Most Recent: 116.256 kg I&O - Last 24 Hours: Intake & Output 11/05/18 11/06/18 11/06/18 22:59 06:59 14:59 Intake Total 1250 1150 Output Total 0 3000 Balance 1250 -1850 Lab Results Last 24 Hours: Laboratory Results - last 24 hr 11/05/18 11/05/18 11/05/18 Range/Units 13:41 13:41 16:50 WBC 17.97 H (4.0-11.0) K/uL RBC 4.68 (4.50-5.90) M/uL Hgb 15.9 (13.0-17.0) g/dL Hct 46.8 (38.0-50.0) % MCV 100.0 H (80.0-98.0) fL MCH 34.0 H (27.0-32.0) pg MCHC 34.0 (31.0-37.0) g/dL RDW Std Deviation 48.6 (28.0-62.0) fl RDW Coeff of Adamaris 14 (11.0-15.0) % Plt Count 190 (150-400) K/uL MPV 11.00 (7.40-12.00) fL Neut % (Auto) 82.4 H (48.0-80.0) % Lymph % (Auto) 10.5 L (16.0-40.0) % [place] % (Auto) 6.8 (0.0-15.0) % Eos % (Auto) 0.2 (0.0-7.0) % Baso % (Auto) 0.1 (0.0-1.5) % Neut # (Auto) 14.8 H (1.4-5.7) K/uL Lymph # (Auto) 1.9 (0.6-2.4) K/uL [place] # (Auto) 1.2 H (0.0-0.8) K/uL Eos # (Auto) 0.0 (0.0-0.7) K/uL Baso # (Auto) 0.0 (0.0-0.1) K/uL Nucleated RBC % 0.0 /100WBC Nucleated RBCs # 0 K/uL Sodium 141 (136-148) mmol/L Potassium 4.2 (3.5-5.1) mmol/L Chloride 106 (98-107) mmol/L Carbon Dioxide 23.5 (21.0-32.0) mmol/L BUN 8 (7.0-18.0) mg/dL Creatinine 1.0 (0.8-1.3) mg/dL Est Cr Clr Drug Dosing 80.79 mL/min Estimated GFR (MDRD) > 60.0 ml/min Glucose 97 (74-106) mg/dL Calcium 9.2 (8.5-10.1) mg/dL Total Bilirubin 1.3 H (0.2-1.0) mg/dL AST 17 (15-37) IU/L ALT 31 (14-63) IU/L Alkaline Phosphatase 70 (46-116) U/L Total Protein 7.2 (6.4-8.2) g/dL Albumin 3.6 (3.4-5.0) g/dL Globulin 3.6 (2.6-4.0) g/dL Albumin/Globulin Ratio 1.0 (0.9-1.6) Lipase 65 L (73-393) U/L Urine Color YELLOW Urine Appearance CLEAR Urine pH 6.0 (5.0-8.0) Ur Specific [place] 1.010 (1.001-1.035) Urine Protein NEGATIVE (NEGATIVE) mg/dL Urine Glucose (UA) NEGATIVE (NEGATIVE) mg/dL Urine Ketones NEGATIVE (NEGATIVE) mg/dL Urine Occult Blood NEGATIVE (NEGATIVE) Urine Nitrite NEGATIVE (NEGATIVE) Urine Bilirubin NEGATIVE (NEGATIVE) Urine Urobilinogen 1.0 (<2.0) EU/dL Ur Leukocyte Esterase NEGATIVE (NEGATIVE) 11/06/18 11/06/18 Range/Units 05:50 05:50 WBC 14.47 H (4.0-11.0) K/uL RBC 4.47 L (4.50-5.90) M/uL Hgb 15.0 (13.0-17.0) g/dL Hct 45.0 (38.0-50.0) % MCV 100.7 H (80.0-98.0) fL MCH 33.6 H (27.0-32.0) pg MCHC 33.3 (31.0-37.0) g/dL RDW Std Deviation 49.9 (28.0-62.0) fl RDW Coeff of [place] 14 (11.0-15.0) % Plt Count 189 (150-400) K/uL MPV 11.10 (7.40-12.00) fL Neut % (Auto) 75.6 (48.0-80.0) % Lymph % (Auto) 14.6 L (16.0-40.0) % [place] % (Auto) 9.1 (0.0-15.0) % Eos % (Auto) 0.6 (0.0-7.0) % Baso % (Auto) 0.1 (0.0-1.5) % Neut # (Auto) 10.9 H (1.4-5.7) K/uL Lymph # (Auto) 2.1 (0.6-2.4) K/uL [place] # (Auto) 1.3 H (0.0-0.8) K/uL Eos # (Auto) 0.1 (0.0-0.7) K/uL Baso # (Auto) 0.0 (0.0-0.1) K/uL Nucleated RBC % 0.0 /100WBC Nucleated RBCs # 0 K/uL Sodium 139 (136-148) mmol/L Potassium 4.7 (3.5-5.1) mmol/L Chloride 106 (98-107) mmol/L Carbon Dioxide 28.0 (21.0-32.0) mmol/L BUN 9 (7.0-18.0) mg/dL Creatinine 1.0 (0.8-1.3) mg/dL Est Cr Clr Drug Dosing 80.59 mL/min Estimated GFR (MDRD) > 60.0 ml/min Glucose 110 H (74-106) mg/dL Calcium 8.9 (8.5-10.1) mg/dL Total Bilirubin 1.5 H (0.2-1.0) mg/dL AST 14 L (15-37) IU/L ALT 28 (14-63) IU/L Alkaline Phosphatase 59 (46-116) U/L Total Protein 6.6 (6.4-8.2) g/dL Albumin 3.1 L (3.4-5.0) g/dL Globulin 3.5 (2.6-4.0) g/dL Albumin/Globulin Ratio 0.9 (0.9-1.6) Lipase (73-393) U/L Urine Color Urine Appearance Urine pH (5.0-8.0) Ur Specific [place] (1.001-1.035) Urine Protein (NEGATIVE) mg/dL Urine Glucose (UA) (NEGATIVE) mg/dL Urine Ketones (NEGATIVE) mg/dL Urine Occult Blood (NEGATIVE) Urine Nitrite (NEGATIVE) Urine Bilirubin (NEGATIVE) Urine Urobilinogen (<2.0) EU/dL Ur Leukocyte Esterase (NEGATIVE) Kvng Results Last 24 Hours: Microbiology 11/05/18 15:26 Anaerobic Blood Culture - Final Blood - Venous - Lab Draw Med Orders - Current: Current Medications Enoxaparin Sodium (Lovenox) 40 mg SUBCUT Q24H [facility] [place] Folic Acid (Folic Acid) 1 mg SUBCUT DAILY NISH Last Admin: 11/05/18 16:36 Dose: 1 mg Levofloxacin/Dextrose 750 mg/ (Premix) 150 mls @ 100 mls/hr IV Q24H [facility] [place] Last Admin: 11/05/18 15:39 Dose: 100 mls/hr Sodium Chloride (Normal Saline) 1,000 mls @ 125 mls/hr IV ASDIRECTED [facility] [place] Last Admin: 11/06/18 03:54 Dose: 125 mls/hr Metronidazole 500 mg/ Premix 100 mls @ 100 mls/hr IV QID [facility] [place] Last Admin: 11/06/18 06:11 Dose: 100 mls/hr Morphine Sulfate (Morphine) 3 mg IVPUSH Q2H PRN PRN Reason: Pain (severe 7-10) Morphine Sulfate (Morphine) 2 mg IVPUSH Q2H PRN PRN Reason: Pain Last Admin: 11/05/18 22:23 Dose: 2 mg Ondansetron HCl (Zofran) 4 mg IVPUSH Q4H PRN PRN Reason: Nausea Sodium Chloride (Saline Flush) 2.5 ml FLUSH ASDIRECTED PRN PRN Reason: Keep Vein Open Thiamine HCl (Vitamin B-1) 100 mg IV DAILY [facility] [place] Last Admin: 11/05/18 17:05 Dose: 100 mg Discontinued Medications Sodium Chloride (Normal Saline) 1,000 mls @ 999 mls/hr IV BOLUS ONE Stop: 11/05/18 14:32 Last Admin: 11/05/18 14:05 Dose: 999 mls/hr Metronidazole 500 mg/ Premix 100 mls @ 100 mls/hr IV QID [facility] [place] Last Admin: 11/05/18 17:10 Dose: 100 mls/hr Lorazepam (Ativan) 1 mg IVPUSH Q4H PRN PRN Reason: CIWAA Morphine Sulfate (Morphine) 2 mg IVPUSH ONETIME ONE Stop: 11/05/18 13:33 Last Admin: 11/05/18 14:05 Dose: 2 mg - Exam General: Alert, Oriented, Cooperative Neck: Supple Lungs: Clear to Auscultation, Normal Respiratory Effort Cardiovascular: Regular Rate, Regular Rhythm, No Murmurs GI/Abdominal Exam: Normal Bowel Sounds, Soft, Tender (RLQ to R middle quadrant) . No: Distended, Guarding, Rebound Back Exam: Normal Inspection, Full Range of Motion Extremities: Normal Inspection, Normal Range of Motion, Non-Tender, No Pedal Edema Neurological: No New Focal Deficit Psy/Mental Status: Alert, Normal Affect, Normal Mood - Problem List & Annotations (1) Perforation of sigmoid colon due to diverticulitis SNOMED Code(s): 4092439459964816 Code(s): K57.20 - DVTRCLI OF LG INT W PERFORATION AND ABSCESS W/O BLEEDING Status: Acute Current Visit: Yes - Problem List Review Problem List Initiated/Reviewed/Updated: Yes - My Orders Last 24 Hours: My Active Orders 11/05/18 14:36 Intake and Output [RC] QSHIFT May Shower [RC] ASDIRECTED Oxygen Therapy [RC] PRN Up ad Echo [RC] ASDIRECTED VTE/DVT Education [RC] PER UNIT ROUTINE Vital Signs [RC] Q4H Consult to Physician [CONS] Routine Morphine 3 mg IVPUSH Q2H PRN Ondansetron [Zofran] 4 mg IVPUSH Q4H PRN Sodium Chloride 0.9% [Saline Flush] 2.5 ml FLUSH ASDIRECTED PRN Saline Lock Insert [OM.PC] Routine Resuscitation Status Routine 11/05/18 14:39 Notify Provider Consults [RC] ASDIRECTED 11/05/18 14:45 Levofloxacin/Dextrose 5%-Water [Levaquin in D5W 750 MG/150 ML] 750 mg Premix Bag 1 bag IV Q24H Sodium Chloride 0.9% [Normal Saline] 1,000 ml IV ASDIRECTED 11/05/18 14:54 Isolation [COMM] Stat 11/05/18 15:09 Blood Culture x2 Reflex Set [OM.PC] Stat 11/05/18 15:10 Folic Acid 1 mg SUBCUT DAILY Thiamine [Vitamin B-1] 100 mg IV DAILY 11/05/18 15:16 CULTURE BLOOD [BC] Stat 11/05/18 15:26 CULTURE BLOOD [BC] Stat 11/05/18 Dinner Nothing Per Oral Diet [DIET] 11/06/18 00:00 metroNIDAZOLE/Normal Saline [Flagyl 500 MG in NS 100 ML] 500 mg Premix Bag 1 bag IV QID 11/06/18 08:15 Enoxaparin [Lovenox] 40 mg SUBCUT Q24H 11/07/18 05:11 CBC WITH AUTO DIFF [HEME] AM COMPREHENSIVE METABOLIC PN,CMP [CHEM] AM 11/08/18 05:11 CBC WITH AUTO DIFF [HEME] AM COMPREHENSIVE METABOLIC PN,CMP [CHEM] AM - Plan Plan:: This 52 year old male admitted with acute sigmoid diverticulitis 1. Sigmoid diverticulitis: Repeat CT with contrast revealed worsening of acute diverticulitis involving the mid portion of the sigmoid colon to the right of midline, there is now prominent inflammatory reaction with extraluminal gas consistent with perforation, no sign of abscess. Dr Jeffers notified, felt this was likely microperforation, continue treatment as discussed. Leukocytosis improved to 14,000 today. BMP stable. Continue Levaquin and Flagyl. NS at 125. Continue bowel rest today. Morphine for pain PRN. Zofran PRN nausea. 2. Hx alcohol abuse:Will supplement with folic acid and thiamine. CIWAA protocol to be discontinued. Reports he is feeling fine, last drink 5 days ago. 3. Tobacco use: counseled on cessation, declines nicotine patch. VTE prophylaxis: Lovenox. Dispo: 2-3 days pending improvement. <Guicho Granados - Last Filed: 11/06/18 08:18> - General Info Admission Dx/Problem (Free Text): I have examined the patient independently of Suzie Uriostegui CNP. I have discussed the case with her. I have reviewed and agree with the examination and plan as outlined by her. Please see orders. - Patient Data Vitals - Most Recent: Last Vital Signs Temp 36.3 C 11/06/18 04:00 Pulse 73 11/06/18 04:00 Resp 16 11/06/18 04:00 BP 125/76 11/06/18 04:00 Pulse Ox 95 11/06/18 04:00 I&O - Last 24 Hours: Intake & Output 11/05/18 11/06/18 11/06/18 22:59 06:59 14:59 Intake Total 1250 1150 Output Total 0 3000 Balance 1250 -1850 Lab Results Last 24 Hours: Laboratory Results - last 24 hr 11/05/18 11/05/18 11/05/18 Range/Units 13:41 13:41 16:50 WBC 17.97 H (4.0-11.0) K/uL RBC 4.68 (4.50-5.90) M/uL Hgb 15.9 (13.0-17.0) g/dL Hct 46.8 (38.0-50.0) % MCV 100.0 H (80.0-98.0) fL MCH 34.0 H (27.0-32.0) pg MCHC 34.0 (31.0-37.0) g/dL RDW Std Deviation 48.6 (28.0-62.0) fl RDW Coeff of [place] 14 (11.0-15.0) % Plt Count 190 (150-400) K/uL MPV 11.00 (7.40-12.00) fL Neut % (Auto) 82.4 H (48.0-80.0) % Lymph % (Auto) 10.5 L (16.0-40.0) % [place] % (Auto) 6.8 (0.0-15.0) % Eos % (Auto) 0.2 (0.0-7.0) % Baso % (Auto) 0.1 (0.0-1.5) % Neut # (Auto) 14.8 H (1.4-5.7) K/uL Lymph # (Auto) 1.9 (0.6-2.4) K/uL [place] # (Auto) 1.2 H (0.0-0.8) K/uL Eos # (Auto) 0.0 (0.0-0.7) K/uL Baso # (Auto) 0.0 (0.0-0.1) K/uL Nucleated RBC % 0.0 /100WBC Nucleated RBCs # 0 K/uL Sodium 141 (136-148) mmol/L Potassium 4.2 (3.5-5.1) mmol/L Chloride 106 (98-107) mmol/L Carbon Dioxide 23.5 (21.0-32.0) mmol/L BUN 8 (7.0-18.0) mg/dL Creatinine 1.0 (0.8-1.3) mg/dL Est Cr Clr Drug Dosing 80.79 mL/min Estimated GFR (MDRD) > 60.0 ml/min Glucose 97 (74-106) mg/dL Calcium 9.2 (8.5-10.1) mg/dL Total Bilirubin 1.3 H (0.2-1.0) mg/dL AST 17 (15-37) IU/L ALT 31 (14-63) IU/L Alkaline Phosphatase 70 (46-116) U/L Total Protein 7.2 (6.4-8.2) g/dL Albumin 3.6 (3.4-5.0) g/dL Globulin 3.6 (2.6-4.0) g/dL Albumin/Globulin Ratio 1.0 (0.9-1.6) Lipase 65 L (73-393) U/L Urine Color YELLOW Urine Appearance CLEAR Urine pH 6.0 (5.0-8.0) Ur Specific [place] 1.010 (1.001-1.035) Urine Protein NEGATIVE (NEGATIVE) mg/dL Urine Glucose (UA) NEGATIVE (NEGATIVE) mg/dL Urine Ketones NEGATIVE (NEGATIVE) mg/dL Urine Occult Blood NEGATIVE (NEGATIVE) Urine Nitrite NEGATIVE (NEGATIVE) Urine Bilirubin NEGATIVE (NEGATIVE) Urine Urobilinogen 1.0 (<2.0) EU/dL Ur Leukocyte Esterase NEGATIVE (NEGATIVE) 11/06/18 11/06/18 Range/Units 05:50 05:50 WBC 14.47 H (4.0-11.0) K/uL RBC 4.47 L (4.50-5.90) M/uL Hgb 15.0 (13.0-17.0) g/dL Hct 45.0 (38.0-50.0) % MCV 100.7 H (80.0-98.0) fL MCH 33.6 H (27.0-32.0) pg MCHC 33.3 (31.0-37.0) g/dL RDW Std Deviation 49.9 (28.0-62.0) fl RDW Coeff of [place] 14 (11.0-15.0) % Plt Count 189 (150-400) K/uL MPV 11.10 (7.40-12.00) fL Neut % (Auto) 75.6 (48.0-80.0) % Lymph % (Auto) 14.6 L (16.0-40.0) % [place] % (Auto) 9.1 (0.0-15.0) % Eos % (Auto) 0.6 (0.0-7.0) % Baso % (Auto) 0.1 (0.0-1.5) % Neut # (Auto) 10.9 H (1.4-5.7) K/uL Lymph # (Auto) 2.1 (0.6-2.4) K/uL [place] # (Auto) 1.3 H (0.0-0.8) K/uL Eos # (Auto) 0.1 (0.0-0.7) K/uL Baso # (Auto) 0.0 (0.0-0.1) K/uL Nucleated RBC % 0.0 /100WBC Nucleated RBCs # 0 K/uL Sodium 139 (136-148) mmol/L Potassium 4.7 (3.5-5.1) mmol/L Chloride 106 (98-107) mmol/L Carbon Dioxide 28.0 (21.0-32.0) mmol/L BUN 9 (7.0-18.0) mg/dL Creatinine 1.0 (0.8-1.3) mg/dL Est Cr Clr Drug Dosing 80.59 mL/min Estimated GFR (MDRD) > 60.0 ml/min Glucose 110 H (74-106) mg/dL Calcium 8.9 (8.5-10.1) mg/dL Total Bilirubin 1.5 H (0.2-1.0) mg/dL AST 14 L (15-37) IU/L ALT 28 (14-63) IU/L Alkaline Phosphatase 59 (46-116) U/L Total Protein 6.6 (6.4-8.2) g/dL Albumin 3.1 L (3.4-5.0) g/dL Globulin 3.5 (2.6-4.0) g/dL Albumin/Globulin Ratio 0.9 (0.9-1.6) Lipase (73-393) U/L Urine Color Urine Appearance Urine pH (5.0-8.0) Ur Specific [place] (1.001-1.035) Urine Protein (NEGATIVE) mg/dL Urine Glucose (UA) (NEGATIVE) mg/dL Urine Ketones (NEGATIVE) mg/dL Urine Occult Blood (NEGATIVE) Urine Nitrite (NEGATIVE) Urine Bilirubin (NEGATIVE) Urine Urobilinogen (<2.0) EU/dL Ur Leukocyte Esterase (NEGATIVE) Kvng Results Last 24 Hours: Microbiology 11/05/18 15:26 Anaerobic Blood Culture - Final Blood - Venous - Lab Draw Med Orders - Current: Current Medications Enoxaparin Sodium (Lovenox) 40 mg SUBCUT Q24H [facility] Folic Acid (Folic Acid) 1 mg SUBCUT DAILY NISH Last Admin: 11/05/18 16:36 Dose: 1 mg Levofloxacin/Dextrose 750 mg/ (Premix) 150 mls @ 100 mls/hr IV Q24H [facility] [place] Last Admin: 11/05/18 15:39 Dose: 100 mls/hr Sodium Chloride (Normal Saline) 1,000 mls @ 125 mls/hr IV ASDIRECTED [facility] [place] Last Admin: 11/06/18 03:54 Dose: 125 mls/hr Metronidazole 500 mg/ Premix 100 mls @ 100 mls/hr IV QID [facility] [place] Last Admin: 11/06/18 06:11 Dose: 100 mls/hr Morphine Sulfate (Morphine) 3 mg IVPUSH Q2H PRN PRN Reason: Pain (severe 7-10) Morphine Sulfate (Morphine) 2 mg IVPUSH Q2H PRN PRN Reason: Pain Last Admin: 11/05/18 22:23 Dose: 2 mg Ondansetron HCl (Zofran) 4 mg IVPUSH Q4H PRN PRN Reason: Nausea Sodium Chloride (Saline Flush) 2.5 ml FLUSH ASDIRECTED PRN PRN Reason: Keep Vein Open Thiamine HCl (Vitamin B-1) 100 mg IV DAILY [facility] [place] Last Admin: 11/05/18 17:05 Dose: 100 mg Discontinued Medications Sodium Chloride (Normal Saline) 1,000 mls @ 999 mls/hr IV BOLUS ONE Stop: 11/05/18 14:32 Last Admin: 11/05/18 14:05 Dose: 999 mls/hr Metronidazole 500 mg/ Premix 100 mls @ 100 mls/hr IV QID [facility] [place] Last Admin: 11/05/18 17:10 Dose: 100 mls/hr Lorazepam (Ativan) 1 mg IVPUSH Q4H PRN PRN Reason: CIWAA Morphine Sulfate (Morphine) 2 mg IVPUSH ONETIME ONE Stop: 11/05/18 13:33 Last Admin: 11/05/18 14:05 Dose: 2 mg
[2018-11-06] MEDS: Enoxaparin 40 MG/0.4 ML Syringe SUBCUT SCH (09:01)
[2018-11-06] MEDS: Folic Acid 50 MG/10 ML MDV SUBCUT SCH (09:02)
[2018-11-06] MEDS: Thiamine 200 MG/2 ML MDV IV SCH (09:02)
--- NOTE | 2018-11-06 09:25 | PCM.SURGPN ---
- General Info Date of Service: 11/06/18 Functional Status: Reports: Pain Controlled (" much better, still hurt, nothing like yesterday") - Review of Systems General: Reports: No Symptoms - Patient Data Vitals - Most Recent: Last Vital Signs Temp 97.3 F 11/06/18 04:00 Pulse 73 11/06/18 04:00 Resp 16 11/06/18 04:00 BP 125/76 11/06/18 04:00 Pulse Ox 95 11/06/18 04:00 Weight - Most Recent: 256 lb 4.8 oz I&O - Last 24 Hours: Intake & Output 11/05/18 11/06/18 11/06/18 22:59 06:59 14:59 Intake Total 1250 1150 Output Total 0 3000 Balance 1250 -1850 Lab Results Last 24 Hrs: Laboratory Results - last 24 hr 11/05/18 11/05/18 11/05/18 Range/Units 13:41 13:41 16:50 WBC 17.97 H (4.0-11.0) K/uL RBC 4.68 (4.50-5.90) M/uL Hgb 15.9 (13.0-17.0) g/dL Hct 46.8 (38.0-50.0) % MCV 100.0 H (80.0-98.0) fL MCH 34.0 H (27.0-32.0) pg MCHC 34.0 (31.0-37.0) g/dL RDW Std Deviation 48.6 (28.0-62.0) fl RDW Coeff of Adamaris 14 (11.0-15.0) % Plt Count 190 (150-400) K/uL MPV 11.00 (7.40-12.00) fL Neut % (Auto) 82.4 H (48.0-80.0) % Lymph % (Auto) 10.5 L (16.0-40.0) % Cass % (Auto) 6.8 (0.0-15.0) % Eos % (Auto) 0.2 (0.0-7.0) % Baso % (Auto) 0.1 (0.0-1.5) % Neut # (Auto) 14.8 H (1.4-5.7) K/uL Lymph # (Auto) 1.9 (0.6-2.4) K/uL Cass # (Auto) 1.2 H (0.0-0.8) K/uL Eos # (Auto) 0.0 (0.0-0.7) K/uL Baso # (Auto) 0.0 (0.0-0.1) K/uL Nucleated RBC % 0.0 /100WBC Nucleated RBCs # 0 K/uL Sodium 141 (136-148) mmol/L Potassium 4.2 (3.5-5.1) mmol/L Chloride 106 (98-107) mmol/L Carbon Dioxide 23.5 (21.0-32.0) mmol/L BUN 8 (7.0-18.0) mg/dL Creatinine 1.0 (0.8-1.3) mg/dL Est Cr Clr Drug Dosing 80.79 mL/min Estimated GFR (MDRD) > 60.0 ml/min Glucose 97 (74-106) mg/dL Calcium 9.2 (8.5-10.1) mg/dL Total Bilirubin 1.3 H (0.2-1.0) mg/dL AST 17 (15-37) IU/L ALT 31 (14-63) IU/L Alkaline Phosphatase 70 (46-116) U/L Total Protein 7.2 (6.4-8.2) g/dL Albumin 3.6 (3.4-5.0) g/dL Globulin 3.6 (2.6-4.0) g/dL Albumin/Globulin Ratio 1.0 (0.9-1.6) Lipase 65 L (73-393) U/L Urine Color YELLOW Urine Appearance CLEAR Urine pH 6.0 (5.0-8.0) Ur Specific [place] 1.010 (1.001-1.035) Urine Protein NEGATIVE (NEGATIVE) mg/dL Urine Glucose (UA) NEGATIVE (NEGATIVE) mg/dL Urine Ketones NEGATIVE (NEGATIVE) mg/dL Urine Occult Blood NEGATIVE (NEGATIVE) Urine Nitrite NEGATIVE (NEGATIVE) Urine Bilirubin NEGATIVE (NEGATIVE) Urine Urobilinogen 1.0 (<2.0) EU/dL Ur Leukocyte Esterase NEGATIVE (NEGATIVE) 11/06/18 11/06/18 Range/Units 05:50 05:50 WBC 14.47 H (4.0-11.0) K/uL RBC 4.47 L (4.50-5.90) M/uL Hgb 15.0 (13.0-17.0) g/dL Hct 45.0 (38.0-50.0) % MCV 100.7 H (80.0-98.0) fL MCH 33.6 H (27.0-32.0) pg MCHC 33.3 (31.0-37.0) g/dL RDW Std Deviation 49.9 (28.0-62.0) fl RDW Coeff of Adamaris 14 (11.0-15.0) % Plt Count 189 (150-400) K/uL MPV 11.10 (7.40-12.00) fL Neut % (Auto) 75.6 (48.0-80.0) % Lymph % (Auto) 14.6 L (16.0-40.0) % Cass % (Auto) 9.1 (0.0-15.0) % Eos % (Auto) 0.6 (0.0-7.0) % Baso % (Auto) 0.1 (0.0-1.5) % Neut # (Auto) 10.9 H (1.4-5.7) K/uL Lymph # (Auto) 2.1 (0.6-2.4) K/uL Cass # (Auto) 1.3 H (0.0-0.8) K/uL Eos # (Auto) 0.1 (0.0-0.7) K/uL Baso # (Auto) 0.0 (0.0-0.1) K/uL Nucleated RBC % 0.0 /100WBC Nucleated RBCs # 0 K/uL Sodium 139 (136-148) mmol/L Potassium 4.7 (3.5-5.1) mmol/L Chloride 106 (98-107) mmol/L Carbon Dioxide 28.0 (21.0-32.0) mmol/L BUN 9 (7.0-18.0) mg/dL Creatinine 1.0 (0.8-1.3) mg/dL Est Cr Clr Drug Dosing 80.59 mL/min Estimated GFR (MDRD) > 60.0 ml/min Glucose 110 H (74-106) mg/dL Calcium 8.9 (8.5-10.1) mg/dL Total Bilirubin 1.5 H (0.2-1.0) mg/dL AST 14 L (15-37) IU/L ALT 28 (14-63) IU/L Alkaline Phosphatase 59 (46-116) U/L Total Protein 6.6 (6.4-8.2) g/dL Albumin 3.1 L (3.4-5.0) g/dL Globulin 3.5 (2.6-4.0) g/dL Albumin/Globulin Ratio 0.9 (0.9-1.6) Lipase (73-393) U/L Urine Color Urine Appearance Urine pH (5.0-8.0) Ur Specific [place] (1.001-1.035) Urine Protein (NEGATIVE) mg/dL Urine Glucose (UA) (NEGATIVE) mg/dL Urine Ketones (NEGATIVE) mg/dL Urine Occult Blood (NEGATIVE) Urine Nitrite (NEGATIVE) Urine Bilirubin (NEGATIVE) Urine Urobilinogen (<2.0) EU/dL Ur Leukocyte Esterase (NEGATIVE) Kvng Results Last 24 Hrs: Microbiology 11/05/18 15:26 Anaerobic Blood Culture - Final Blood - Venous - Lab Draw Med Orders - Current: Current Medications Enoxaparin Sodium (Lovenox) 40 mg SUBCUT Q24H [facility] Last Admin: 11/06/18 09:01 Dose: 40 mg Folic Acid (Folic Acid) 1 mg SUBCUT DAILY [facility] Last Admin: 11/06/18 09:02 Dose: 1 mg Levofloxacin/Dextrose 750 mg/ (Premix) 150 mls @ 100 mls/hr IV Q24H [facility] Last Admin: 11/05/18 15:39 Dose: 100 mls/hr Sodium Chloride (Normal Saline) 1,000 mls @ 125 mls/hr IV ASDIRECTED [facility] Last Admin: 11/06/18 03:54 Dose: 125 mls/hr Metronidazole 500 mg/ Premix 100 mls @ 100 mls/hr IV QID [facility] Last Admin: 11/06/18 06:11 Dose: 100 mls/hr Morphine Sulfate (Morphine) 3 mg IVPUSH Q2H PRN PRN Reason: Pain (severe 7-10) Morphine Sulfate (Morphine) 2 mg IVPUSH Q2H PRN PRN Reason: Pain Last Admin: 11/05/18 22:23 Dose: 2 mg Ondansetron HCl (Zofran) 4 mg IVPUSH Q4H PRN PRN Reason: Nausea Sodium Chloride (Saline Flush) 2.5 ml FLUSH ASDIRECTED PRN PRN Reason: Keep Vein Open Thiamine HCl (Vitamin B-1) 100 mg IV DAILY [facility] Last Admin: 11/06/18 09:02 Dose: 100 mg Discontinued Medications Sodium Chloride (Normal Saline) 1,000 mls @ 999 mls/hr IV BOLUS ONE Stop: 11/05/18 14:32 Last Admin: 11/05/18 14:05 Dose: 999 mls/hr Metronidazole 500 mg/ Premix 100 mls @ 100 mls/hr IV QID [facility] Last Admin: 11/05/18 17:10 Dose: 100 mls/hr Lorazepam (Ativan) 1 mg IVPUSH Q4H PRN PRN Reason: CIWAA Morphine Sulfate (Morphine) 2 mg IVPUSH ONETIME ONE Stop: 11/05/18 13:33 Last Admin: 11/05/18 14:05 Dose: 2 mg - Exam GI/Abdominal Exam: Normal Bowel Sounds, Soft (tender around suprapubic and LLQ, no rebound) - Problem List Review Problem List Initiated/Reviewed/Updated: Yes - My Orders Last 24 Hours: Active Orders 24 hr Category Date Time Status Admission Status [Patient Status] [ADT] Stat ADT 11/05/18 14:11 Active Intake and Output [RC] QSHIFT Care 11/05/18 14:36 Active May Shower [RC] ASDIRECTED Care 11/05/18 14:36 Active Notify Provider Consults [RC] ASDIRECTED Care 11/05/18 14:39 Active Oxygen Therapy [RC] PRN Care 11/05/18 14:36 Active Up ad Echo [RC] ASDIRECTED Care 11/05/18 14:36 Active VTE/DVT Education [RC] PER UNIT ROUTINE Care 11/05/18 14:36 Active Vital Signs [RC] Q4H Care 11/05/18 14:36 Active Consult to Physician [CONS] Routine Cons 11/05/18 14:36 Active Nothing Per Oral Diet [DIET] Diet 11/05/18 Dinner Active CBC WITH AUTO DIFF [HEME] AM Lab 11/07/18 05:11 Ordered CBC WITH AUTO DIFF [HEME] AM Lab 11/08/18 05:11 Ordered COMPREHENSIVE METABOLIC PN,CMP [CHEM] AM Lab 11/07/18 05:11 Ordered COMPREHENSIVE METABOLIC PN,CMP [CHEM] AM Lab 11/08/18 05:11 Ordered CULTURE BLOOD [BC] Stat Lab 11/05/18 15:16 Received CULTURE BLOOD [BC] Stat Lab 11/05/18 15:26 Results Enoxaparin [Lovenox] Med 11/06/18 08:15 Active 40 mg SUBCUT Q24H Folic Acid Med 11/05/18 15:10 Active 1 mg SUBCUT DAILY Levofloxacin/Dextrose 5%-Water [Levaquin in D5W 750 MG/ Med 11/05/18 14:45 Active 150 ML] 750 mg Premix Bag 1 bag IV Q24H Morphine Med 11/05/18 17:56 Active 2 mg IVPUSH Q2H PRN Morphine Med 11/05/18 14:36 Active 3 mg IVPUSH Q2H PRN Ondansetron [Zofran] Med 11/05/18 14:36 Active 4 mg IVPUSH Q4H PRN Sodium Chloride 0.9% [Normal Saline] 1,000 ml Med 11/05/18 14:45 Active IV ASDIRECTED Sodium Chloride 0.9% [Saline Flush] Med 11/05/18 14:36 Active 2.5 ml FLUSH ASDIRECTED PRN Thiamine [Vitamin B-1] Med 11/05/18 15:10 Active 100 mg IV DAILY metroNIDAZOLE/Normal Saline [Flagyl 500 MG in NS 100 ML Med 11/06/18 00:00 Active ] 500 mg Premix Bag 1 bag IV QID Blood Culture x2 Reflex Set [OM.PC] Stat Oth 11/05/18 15:09 Ordered Isolation [COMM] Stat Oth 11/05/18 14:54 Ordered Saline Lock Insert [OM.PC] Routine Oth 11/05/18 14:36 Ordered Resuscitation Status Routine Resus Stat 11/05/18 14:36 Ordered Medication Orders Enoxaparin Sodium (Lovenox) 40 mg SUBCUT Q24H [facility] Last Admin: 11/06/18 09:01 Dose: 40 mg Folic Acid (Folic Acid) 1 mg SUBCUT DAILY [facility] Last Admin: 11/06/18 09:02 Dose: 1 mg Admin: 11/05/18 16:36 Dose: 1 mg Levofloxacin/Dextrose 750 mg/ (Premix) 150 mls @ 100 mls/hr IV Q24H [facility] Last Admin: 11/05/18 15:39 Dose: 100 mls/hr Sodium Chloride (Normal Saline) 1,000 mls @ 125 mls/hr IV ASDIRECTED [facility] Last Admin: 11/06/18 03:54 Dose: 125 mls/hr Infusion: 11/06/18 01:00 Dose: 125 mls/hr Admin: 11/05/18 17:00 Dose: 125 mls/hr Metronidazole 500 mg/ Premix 100 mls @ 100 mls/hr IV QID [facility] Last Admin: 11/06/18 06:11 Dose: 100 mls/hr Infusion: 11/06/18 01:30 Dose: 100 mls/hr Admin: 11/06/18 00:30 Dose: 100 mls/hr Morphine Sulfate (Morphine) 3 mg IVPUSH Q2H PRN PRN Reason: Pain (severe 7-10) Morphine Sulfate (Morphine) 2 mg IVPUSH Q2H PRN PRN Reason: Pain Last Admin: 11/05/18 22:23 Dose: 2 mg Admin: 11/05/18 19:05 Dose: 2 mg Ondansetron HCl (Zofran) 4 mg IVPUSH Q4H PRN PRN Reason: Nausea Sodium Chloride (Saline Flush) 2.5 ml FLUSH ASDIRECTED PRN PRN Reason: Keep Vein Open Thiamine HCl (Vitamin B-1) 100 mg IV DAILY [facility] Last Admin: 11/06/18 09:02 Dose: 100 mg Admin: 11/05/18 17:05 Dose: 100 mg - Assessment Assessment (Free Text/Narrative):: respond very well to iv abx, 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
[2018-11-06] MEDS: Levofloxacin/Dextrose 5%-Water 750 MG in Premix Bag 1 BAG IV SCH (14:07)
[2018-11-07] MEDS: metroNIDAZOLE/Normal Saline 500 MG in Premix Bag 1 BAG IV SCH (05:43)
[2018-11-07 06:21] LABS: CHLORIDE,CL 107 mmol/L (98-107); SODIUM,NA 141 mmol/L (136-148)
[2018-11-07] MEDS: Thiamine 200 MG/2 ML MDV IV SCH (09:00)
[2018-11-07] MEDS: Enoxaparin 40 MG/0.4 ML Syringe SUBCUT SCH (09:02)
[2018-11-07] MEDS: Folic Acid 50 MG/10 ML MDV SUBCUT SCH (09:02)
--- NOTE | 2018-11-07 10:09 | PCM.SURGPN ---
- General Info Date of Service: 11/07/18 Functional Status: Reports: Pain Controlled - Review of Systems General: Reports: No Symptoms Gastrointestinal: Reports: No Symptoms (pain almost all resolved) - Patient Data Vitals - Most Recent: Last Vital Signs Temp 97.6 F 11/07/18 07:47 Pulse 96 11/07/18 07:47 Resp 18 11/07/18 07:47 BP 146/85 H 11/07/18 07:47 Pulse Ox 96 11/07/18 07:47 Weight - Most Recent: 256 lb 4.8 oz I&O - Last 24 Hours: Intake & Output 11/06/18 11/07/18 11/07/18 22:59 06:59 14:59 Intake Total 1453 1118 Output Total 320 550 Balance 1133 568 Lab Results Last 24 Hrs: Laboratory Results - last 24 hr 11/07/18 11/07/18 Range/Units 05:20 05:20 WBC 9.79 (4.0-11.0) K/uL RBC 4.37 L (4.50-5.90) M/uL Hgb 14.5 (13.0-17.0) g/dL Hct 43.1 (38.0-50.0) % MCV 98.6 H (80.0-98.0) fL MCH 33.2 H (27.0-32.0) pg MCHC 33.6 (31.0-37.0) g/dL RDW Std Deviation 47.6 (28.0-62.0) fl RDW Coeff of Adamaris 13 (11.0-15.0) % Plt Count 189 (150-400) K/uL MPV 11.30 (7.40-12.00) fL Neut % (Auto) 68.6 (48.0-80.0) % Lymph % (Auto) 20.9 (16.0-40.0) % [place] % (Auto) 9.2 (0.0-15.0) % Eos % (Auto) 1.1 (0.0-7.0) % Baso % (Auto) 0.2 (0.0-1.5) % Neut # (Auto) 6.7 H (1.4-5.7) K/uL Lymph # (Auto) 2.1 (0.6-2.4) K/uL [place] # (Auto) 0.9 H (0.0-0.8) K/uL Eos # (Auto) 0.1 (0.0-0.7) K/uL Baso # (Auto) 0.0 (0.0-0.1) K/uL Nucleated RBC % 0.0 /100WBC Nucleated RBCs # 0 K/uL Sodium 141 (136-148) mmol/L Potassium 4.0 (3.5-5.1) mmol/L Chloride 107 (98-107) mmol/L Carbon Dioxide 23.2 (21.0-32.0) mmol/L BUN 9 (7.0-18.0) mg/dL Creatinine 0.8 (0.8-1.3) mg/dL Est Cr Clr Drug Dosing 100.74 mL/min Estimated GFR (MDRD) > 60.0 ml/min Glucose 89 (74-106) mg/dL Calcium 8.9 (8.5-10.1) mg/dL Total Bilirubin 1.2 H (0.2-1.0) mg/dL AST 14 L (15-37) IU/L ALT 24 (14-63) IU/L Alkaline Phosphatase 57 (46-116) U/L Total Protein 6.5 (6.4-8.2) g/dL Albumin 2.8 L (3.4-5.0) g/dL Globulin 3.7 (2.6-4.0) g/dL Albumin/Globulin Ratio 0.8 L (0.9-1.6) Kvng Results Last 24 Hrs: Microbiology 11/05/18 15:26 Aerobic Blood Culture - Preliminary Blood - Venous - Lab Draw NO GROWTH AFTER 1 DAY Anaerobic Blood Culture - Final 11/05/18 15:16 Aerobic Blood Culture - Preliminary Blood - Venous NO GROWTH AFTER 1 DAY Anaerobic Blood Culture - Preliminary NO GROWTH AFTER 1 DAY Med Orders - Current: Current Medications Enoxaparin Sodium (Lovenox) 40 mg SUBCUT Q24H REPLACED BY [facility] Last Admin: 11/07/18 09:02 Dose: 40 mg Folic Acid (Folic Acid) 1 mg SUBCUT DAILY [facility]PL[facility]ED BY [facility] Last Admin: 11/07/18 09:02 Dose: 1 mg Levofloxacin/Dextrose 750 mg/ (Premix) 150 mls @ 100 mls/hr IV Q24H REPLACED BY [facility] Last Admin: 11/06/18 14:07 Dose: 100 mls/hr Sodium Chloride (Normal Saline) 1,000 mls @ 125 mls/hr IV ASDIRECTED REPLACED BY [facility] Last Admin: 11/06/18 23:43 Dose: 125 mls/hr Metronidazole 500 mg/ Premix 100 mls @ 100 mls/hr IV QID REPLACED BY [facility] Last Admin: 11/07/18 05:43 Dose: 100 mls/hr Morphine Sulfate (Morphine) 3 mg IVPUSH Q2H PRN PRN Reason: Pain (severe 7-10) Morphine Sulfate (Morphine) 2 mg IVPUSH Q2H PRN PRN Reason: Pain Last Admin: 11/05/18 22:23 Dose: 2 mg Ondansetron HCl (Zofran) 4 mg IVPUSH Q4H PRN PRN Reason: Nausea Sodium Chloride (Saline Flush) 2.5 ml FLUSH ASDIRECTED PRN PRN Reason: Keep Vein Open Thiamine HCl (Vitamin B-1) 100 mg IV DAILY REPL[facility]ED [facility] Last Admin: 11/07/18 09:00 Dose: 100 mg Discontinued Medications Sodium Chloride (Normal Saline) 1,000 mls @ 999 mls/hr IV BOLUS ONE Stop: 11/05/18 14:32 Last Admin: 11/05/18 14:05 Dose: 999 mls/hr Metronidazole 500 mg/ Premix 100 mls @ 100 mls/hr IV QID REPLACED BY [facility] Last Admin: 11/05/18 17:10 Dose: 100 mls/hr Lorazepam (Ativan) 1 mg IVPUSH Q4H PRN PRN Reason: CIWAA Morphine Sulfate (Morphine) 2 mg IVPUSH ONETIME ONE Stop: 11/05/18 13:33 Last Admin: 11/05/18 14:05 Dose: 2 mg - Exam GI/Abdominal Exam: Normal Bowel Sounds, Soft, Non-Tender - Problem List Review Problem List Initiated/Reviewed/Updated: Yes - My Orders Last 24 Hours: Active Orders 24 hr Category Date Time Status Clear Liquid Diet [DIET] Diet 11/07/18 Breakfast Active CBC WITH AUTO DIFF [HEME] AM Lab 11/08/18 05:11 Ordered CDIFF TOX A+B [OP] Routine Lab 11/07/18 09:09 Received COMPREHENSIVE METABOLIC PN,CMP [CHEM] AM Lab 11/08/18 05:11 Ordered CULTURE STOOL + CAMPY+SHIGATOX [RM] Routine Lab 11/07/18 09:09 Received Medication Orders Enoxaparin Sodium (Lovenox) 40 mg SUBCUT Q24H REPLACED BY [facility] Last Admin: 11/07/18 09:02 Dose: 40 mg Admin: 11/06/18 09:01 Dose: 40 mg Folic Acid (Folic Acid) 1 mg SUBCUT DAILY REPLACED BY [facility] Last Admin: 11/07/18 09:02 Dose: 1 mg Admin: 11/06/18 09:02 Dose: 1 mg Admin: 11/05/18 16:36 Dose: 1 mg Levofloxacin/Dextrose 750 mg/ (Premix) 150 mls @ 100 mls/hr IV Q24H REPLACED [facility] Last Admin: 11/06/18 14:07 Dose: 100 mls/hr Infusion: 11/05/18 17:09 Dose: 100 mls/hr Admin: 11/05/18 15:39 Dose: 100 mls/hr Sodium Chloride (Normal Saline) 1,000 mls @ 125 mls/hr IV ASDIRECTED REPLACED BY [facility] Last Admin: 11/06/18 23:43 Dose: 125 mls/hr Infusion: 11/06/18 21:43 Dose: 125 mls/hr Admin: 11/06/18 13:43 Dose: 125 mls/hr Infusion: 11/06/18 11:54 Dose: 125 mls/hr Admin: 11/06/18 03:54 Dose: 125 mls/hr Infusion: 11/06/18 01:00 Dose: 125 mls/hr Admin: 11/05/18 17:00 Dose: 125 mls/hr Metronidazole 500 mg/ Premix 100 mls @ 100 mls/hr IV QID REPLACED BY [facility] Last Admin: 11/07/18 05:43 Dose: 100 mls/hr Infusion: 11/07/18 00:44 Dose: 100 mls/hr Admin: 11/06/18 23:44 Dose: 100 mls/hr Infusion: 11/06/18 19:13 Dose: 100 mls/hr Admin: 11/06/18 18:13 Dose: 100 mls/hr Infusion: 11/06/18 12:20 Dose: 100 mls/hr Admin: 11/06/18 11:20 Dose: 100 mls/hr Infusion: 11/06/18 07:11 Dose: 100 mls/hr Admin: 11/06/18 06:11 Dose: 100 mls/hr Infusion: 11/06/18 01:30 Dose: 100 mls/hr Admin: 11/06/18 00:30 Dose: 100 mls/hr Morphine Sulfate (Morphine) 3 mg IVPUSH Q2H PRN PRN Reason: Pain (severe 7-10) Morphine Sulfate (Morphine) 2 mg IVPUSH Q2H PRN PRN Reason: Pain Last Admin: 11/05/18 22:23 Dose: 2 mg Admin: 11/05/18 19:05 Dose: 2 mg Ondansetron HCl (Zofran) 4 mg IVPUSH Q4H PRN PRN Reason: Nausea Sodium Chloride (Saline Flush) 2.5 ml FLUSH ASDIRECTED PRN PRN Reason: Keep Vein Open Thiamine HCl (Vitamin B-1) 100 mg IV DAILY [facility] Last Admin: 11/07/18 09:00 Dose: 100 mg Admin: 11/06/18 09:02 Dose: 100 mg Admin: 11/05/18 17:05 Dose: 100 mg - Assessment Assessment (Free Text/Narrative):: responded very well to iv abx; home on regular diet, po abx X 3 wks, fu appointment w general surgery 2 - 3 wks, need colonoscopy 2 months; thanks for the consult and care of this nice gentleman - Plan Plan (Free Text/Narrative):: responded very well to iv abx; home on regular diet, po abx X 3 wks, fu appointment w general surgery 2 - 3 wks, need colonoscopy 2 months; thanks for the consult and care of this nice gentleman
--- NOTE | 2018-11-07 10:37 | PCM.DCSUM1 ---
<Suzie Uriostegui M - Last Filed: 11/07/18 11:38> Discharge Summary - Hospital Course Brief History: This 52 year old male with pmh of tobacco use and weekly alcohol use presented to the ED today for worsening abdominal pain. He was seen yesterday in the ED and diagnoses with diverticulitis. He was given IV Ciprofloxacin and Flagyl. he was discharged home. He returns today reporting his pain is worse and can barely walk around the house due to the severity of pain. It is located in his right to mid abdomen. He reports intermittent nausea no vomiting. He reports diarrhea, denies it being black or bloody. He reports chills at home. Denies chest pain or shortness of breath. He does report mild lower bilateral shoulder pain which is new from yesterday. Denies urinary symptoms. He reports smoking 1/2-1 ppd, 3-4 beers and a shot of whiskey every couple days. He denies withdrawal from alcohol. No history of CAD or DM. Reports BP elevation but has never been treated with medication for this. Denies history of colonoscopy. In the ED leukocytosis of 17,970 noted, BMP WNL. Bili slightly elevated at 1.3. CT of abd and pelvis from 11/04 revealed moderate diverticulitis with the mid porition of the sigmoid colol which is located to the right of midline, no sign of abscess or perforation. Dr Jeffers consulted on this case in the ED, will like repeat imaging with contrast. Hospitalist to admit inpatient for acute sigmoid diverticulitis Diagnosis: Stroke: No - Discharge Data Discharge Date: 11/07/18 Discharge Disposition: Home, Self-Care 01 Condition: Stable - Discharge Diagnosis/Problem(s) (1) Perforation of sigmoid colon due to diverticulitis SNOMED Code(s): 2518016994702477 ICD Code: K57.20 - DVTRCLI OF LG INT W PERFORATION AND ABSCESS W/O BLEEDING Status: Acute - Patient Summary/Data Consults: Consultations 11/05/18 14:36 Consult to Physician [CONS] Routine - Patient Instructions Diet: GI Soft/Low Residue/Low Fiber Activity: As Tolerated, Rest and Relax Today (May return to Work SaturdayNov 10) Showering/Bathing: May Shower Notify Provider of: Fever, Increased Pain, Swelling and Redness, Drainage, Nausea and/or Vomiting - Discharge Plan *PRESCRIPTION DRUG MONITORING PROGRAM REVIEWED*: Not Applicable *COPY OF PRESCRIPTION DRUG MONITORING REPORT IN PATIENT JOSE MARTIN: Not Applicable Prescriptions/Med Rec: Levofloxacin [Levaquin] 750 mg PO DAILY #21 tablet metroNIDAZOLE [Flagyl] 500 mg PO QID #77 tablet Home Medications: Home Meds Levofloxacin [Levaquin] 750 mg PO DAILY #21 tablet 11/07/18 [Rx] metroNIDAZOLE [Flagyl] 500 mg PO QID #77 tablet 11/07/18 [Rx] Oxygen Therapy Mode: Room Air Patient Handouts: Diverticulitis, [id number], Levofloxacin tablets, Metronidazole tablets or capsules Referrals: Swapnil Jeffers MD [Physician] - 11/18/18 9:45 am (Please arrive at 0930 ) Antonio Becker MD [Ordering Only Provider] - 12/01/18 12:30 pm (come in at 12: 15 with ID and insurance card) - Discharge Summary/Plan Comment DC Time >30 min.: No Discharge Summary/Plan Comment: Admitting Diagnoses: Acute sigmoid diverticulitis with microperforation Discharge Diagnoses Acute sigmoid diverticulitis with microperforation Nikolay was admitted with worsening abdominal pain. Repeat CT revealed acute sigmoid diverticulitis with microperforation. He was treated with Levaquin and Flagyl along with IVFs and bowel rest. Leukocytosis steadily improved and is normal today. Pain improved greatly. Today pain is nearly gone, scant soreness. He is tolerating diet well and is very eager for discharge home. He will be discharged home with antibiotics, 3 weeks total course as recommended by Dr Jeffers. He will follow up with Dr Jeffers as outpatient to insure he is continuing to improve and to schedule outpatient colonoscopy. He was educated on side effects of antibiotics, recommended probiotics during his long course of antibiotics. Also, highly encouraged to stay away from alcohol while taking Flagyl as he would have reaction to the mixture of these. He and verbalized understanding. Encouraged smoking cessation as well. He is to follow up with PCP and Dr Jeffers in 1-3 weeks. He is to return to ED or clinic if concerns should arise. - General Info Date of Service: 11/07/18 Admission Dx/Problem (Free Text: Diverticulitis with microperforation Subjective Update: Up ambulating in room today. Denies pain. reports scant soreness to lower abdomen. Eager to eat and go home. No chest pain or SOB having some loose BMs. Functional Status: Reports: Pain Controlled, Tolerating Diet, Ambulating, Urinating - Review of Systems General: Reports: No Symptoms. Denies: Weakness, Fatigue, Malaise Pulmonary: Reports: No Symptoms. Denies: Shortness of Breath Cardiovascular: Reports: No Symptoms. Denies: Chest Pain Gastrointestinal: Reports: Abdominal Pain (scnat tenderness to R mid abdomen), Diarrhea, Flatus. Denies: Decreased Appetite, Nausea, Vomiting Genitourinary: Reports: No Symptoms. Denies: Dysuria, Frequency, Burning Musculoskeletal: Reports: No Symptoms Skin: Reports: No Symptoms Neurological: Reports: No Symptoms Psychiatric: Reports: No Symptoms - Patient Data Vitals - Most Recent: Last Vital Signs Temp 97.6 F 11/07/18 07:47 Pulse 96 11/07/18 07:47 Resp 18 11/07/18 07:47 BP 146/85 H 11/07/18 07:47 Pulse Ox 96 11/07/18 07:47 Weight - Most Recent: 116.256 kg I&O - Last 24 hours: Intake & Output 11/06/18 11/07/18 11/07/18 22:59 06:59 14:59 Intake Total 1453 1118 Output Total 320 550 Balance 1133 568 Lab Results - Last 24 hrs: Laboratory Results - last 24 hr 11/07/18 11/07/18 Range/Units 05:20 05:20 WBC 9.79 (4.0-11.0) K/uL RBC 4.37 L (4.50-5.90) M/uL Hgb 14.5 (13.0-17.0) g/dL Hct 43.1 (38.0-50.0) % MCV 98.6 H (80.0-98.0) fL MCH 33.2 H (27.0-32.0) pg MCHC 33.6 (31.0-37.0) g/dL RDW Std Deviation 47.6 (28.0-62.0) fl RDW Coeff of Adamaris 13 (11.0-15.0) % Plt Count 189 (150-400) K/uL MPV 11.30 (7.40-12.00) fL Neut % (Auto) 68.6 (48.0-80.0) % Lymph % (Auto) 20.9 (16.0-40.0) % [place] % (Auto) 9.2 (0.0-15.0) % Eos % (Auto) 1.1 (0.0-7.0) % Baso % (Auto) 0.2 (0.0-1.5) % Neut # (Auto) 6.7 H (1.4-5.7) K/uL Lymph # (Auto) 2.1 (0.6-2.4) K/uL [place] # (Auto) 0.9 H (0.0-0.8) K/uL Eos # (Auto) 0.1 (0.0-0.7) K/uL Baso # (Auto) 0.0 (0.0-0.1) K/uL Nucleated RBC % 0.0 /100WBC Nucleated RBCs # 0 K/uL Sodium 141 (136-148) mmol/L Potassium 4.0 (3.5-5.1) mmol/L Chloride 107 (98-107) mmol/L Carbon Dioxide 23.2 (21.0-32.0) mmol/L BUN 9 (7.0-18.0) mg/dL Creatinine 0.8 (0.8-1.3) mg/dL Est Cr Clr Drug Dosing 100.74 mL/min Estimated GFR (MDRD) > 60.0 ml/min Glucose 89 (74-106) mg/dL Calcium 8.9 (8.5-10.1) mg/dL Total Bilirubin 1.2 H (0.2-1.0) mg/dL AST 14 L (15-37) IU/L ALT 24 (14-63) IU/L Alkaline Phosphatase 57 (46-116) U/L Total Protein 6.5 (6.4-8.2) g/dL Albumin 2.8 L (3.4-5.0) g/dL Globulin 3.7 (2.6-4.0) g/dL Albumin/Globulin Ratio 0.8 L (0.9-1.6) ALISIA Results - Last 24 hrs: Microbiology 11/05/18 15:26 Aerobic Blood Culture - Preliminary Blood - Venous - Lab Draw NO GROWTH AFTER 1 DAY Anaerobic Blood Culture - Final 11/05/18 15:16 Aerobic Blood Culture - Preliminary Blood - Venous NO GROWTH AFTER 1 DAY Anaerobic Blood Culture - Preliminary NO GROWTH AFTER 1 DAY Med Orders - Current: Current Medications Enoxaparin Sodium (Lovenox) 40 mg SUBCUT Q24H [facility] Last Admin: 11/07/18 09:02 Dose: 40 mg Folic Acid (Folic Acid) 1 mg SUBCUT DAILY [facility] Last Admin: 11/07/18 09:02 Dose: 1 mg Levofloxacin/Dextrose 750 mg/ (Premix) 150 mls @ 100 mls/hr IV Q24H [facility] Last Admin: 11/06/18 14:07 Dose: 100 mls/hr Sodium Chloride (Normal Saline) 1,000 mls @ 125 mls/hr IV ASDIRECTED [facility] Last Admin: 11/06/18 23:43 Dose: 125 mls/hr Metronidazole 500 mg/ Premix 100 mls @ 100 mls/hr IV QID [facility] Last Admin: 11/07/18 05:43 Dose: 100 mls/hr Morphine Sulfate (Morphine) 3 mg IVPUSH Q2H PRN PRN Reason: Pain (severe 7-10) Morphine Sulfate (Morphine) 2 mg IVPUSH Q2H PRN PRN Reason: Pain Last Admin: 11/05/18 22:23 Dose: 2 mg Ondansetron HCl (Zofran) 4 mg IVPUSH Q4H PRN PRN Reason: Nausea Sodium Chloride (Saline Flush) 2.5 ml FLUSH ASDIRECTED PRN PRN Reason: Keep Vein Open Thiamine HCl (Vitamin B-1) 100 mg IV DAILY [facility] Last Admin: 11/07/18 09:00 Dose: 100 mg Discontinued Medications Sodium Chloride (Normal Saline) 1,000 mls @ 999 mls/hr IV BOLUS ONE Stop: 11/05/18 14:32 Last Admin: 11/05/18 14:05 Dose: 999 mls/hr Metronidazole 500 mg/ Premix 100 mls @ 100 mls/hr IV QID [facility] Last Admin: 11/05/18 17:10 Dose: 100 mls/hr Lorazepam (Ativan) 1 mg IVPUSH Q4H PRN PRN Reason: CIWAA Morphine Sulfate (Morphine) 2 mg IVPUSH ONETIME ONE Stop: 11/05/18 13:33 Last Admin: 11/05/18 14:05 Dose: 2 mg - Exam General: Reports: Alert, Oriented HEENT: Reports: Pupils Equal Lungs: Reports: Clear to Auscultation, Normal Respiratory Effort Cardiovascular: Reports: Regular Rate, Regular Rhythm GI/Abdominal Exam: Normal Bowel Sounds, Soft, Tender (scant tenderness to R mid abdomen) Back Exam: Reports: Normal Inspection, Full Range of Motion Skin: Reports: Warm, Dry Neurological: Reports: No New Focal Deficit Psy/Mental Status: Reports: Alert, Normal Affect, Normal Mood <Guicho Granados - Last Filed: 11/07/18 13:33> Discharge Summary - Hospital Course Free Text/Narrative:: I have examined the patient independently of Suzie Uriostegui CNP. I have discussed the case with her. I have reviewed and agree with the examination and plan as outlined by her. Please see orders. Overall, patient doing much better. The patient says that he feels like he can go home. - Patient Summary/Data Consults: Consultations 11/05/18 14:36 Consult to Physician [CONS] Routine - Patient Data Vitals - Most Recent: Last Vital Signs Temp 36.4 C 11/07/18 07:47 Pulse 96 11/07/18 07:47 Resp 18 11/07/18 07:47 BP 146/85 H 11/07/18 07:47 Pulse Ox 96 11/07/18 07:47 I&O - Last 24 hours: Intake & Output 11/06/18 11/07/18 11/07/18 22:59 06:59 14:59 Intake Total 1453 1118 1500 Output Total 320 550 Balance 6283 711 3745 Lab Results - Last 24 hrs: Laboratory Results - last 24 hr 11/07/18 11/07/18 Range/Units 05:20 05:20 WBC 9.79 (4.0-11.0) K/uL RBC 4.37 L (4.50-5.90) M/uL Hgb 14.5 (13.0-17.0) g/dL Hct 43.1 (38.0-50.0) % MCV 98.6 H (80.0-98.0) fL MCH 33.2 H (27.0-32.0) pg MCHC 33.6 (31.0-37.0) g/dL RDW Std Deviation 47.6 (28.0-62.0) fl RDW Coeff of Adamaris 13 (11.0-15.0) % Plt Count 189 (150-400) K/uL MPV 11.30 (7.40-12.00) fL Neut % (Auto) 68.6 (48.0-80.0) % Lymph % (Auto) 20.9 (16.0-40.0) % [place] % (Auto) 9.2 (0.0-15.0) % Eos % (Auto) 1.1 (0.0-7.0) % Baso % (Auto) 0.2 (0.0-1.5) % Neut # (Auto) 6.7 H (1.4-5.7) K/uL Lymph # (Auto) 2.1 (0.6-2.4) K/uL [place] # (Auto) 0.9 H (0.0-0.8) K/uL Eos # (Auto) 0.1 (0.0-0.7) K/uL Baso # (Auto) 0.0 (0.0-0.1) K/uL Nucleated RBC % 0.0 /100WBC Nucleated RBCs # 0 K/uL Sodium 141 (136-148) mmol/L Potassium 4.0 (3.5-5.1) mmol/L Chloride 107 (98-107) mmol/L Carbon Dioxide 23.2 (21.0-32.0) mmol/L BUN 9 (7.0-18.0) mg/dL Creatinine 0.8 (0.8-1.3) mg/dL Est Cr Clr Drug Dosing 100.74 mL/min Estimated GFR (MDRD) > 60.0 ml/min Glucose 89 (74-106) mg/dL Calcium 8.9 (8.5-10.1) mg/dL Total Bilirubin 1.2 H (0.2-1.0) mg/dL AST 14 L (15-37) IU/L ALT 24 (14-63) IU/L Alkaline Phosphatase 57 (46-116) U/L Total Protein 6.5 (6.4-8.2) g/dL Albumin 2.8 L (3.4-5.0) g/dL Globulin 3.7 (2.6-4.0) g/dL Albumin/Globulin Ratio 0.8 L (0.9-1.6) ALISIA Results - Last 24 hrs: Microbiology 11/07/18 09:09 Clostridium difficile Toxin A & B - Final Stool / Feces Negative for C.Diff Toxin/AG REFERENCE RANGE: NEGATIVE 11/07/18 09:09 Campylobacter Antigen Assay - Final Stool / Feces Positive Campylobacter Ag 11/05/18 15:26 Aerobic Blood Culture - Preliminary Blood - Venous - Lab Draw NO GROWTH AFTER 1 DAY Anaerobic Blood Culture - Final 11/05/18 15:16 Aerobic Blood Culture - Preliminary Blood - Venous NO GROWTH AFTER 1 DAY Anaerobic Blood Culture - Preliminary NO GROWTH AFTER 1 DAY Med Orders - Current: Current Medications Discontinued Medications Enoxaparin Sodium (Lovenox) 40 mg SUBCUT Q24H [facility] Last Admin: 11/07/18 09:02 Dose: 40 mg Folic Acid (Folic Acid) 1 mg SUBCUT DAILY [facility] Last Admin: 11/07/18 09:02 Dose: 1 mg Sodium Chloride (Normal Saline) 1,000 mls @ 999 mls/hr IV BOLUS ONE Stop: 11/05/18 14:32 Last Admin: 11/05/18 14:05 Dose: 999 mls/hr Levofloxacin/Dextrose 750 mg/ (Premix) 150 mls @ 100 mls/hr IV Q24H [facility] Last Admin: 11/06/18 14:07 Dose: 100 mls/hr Metronidazole 500 mg/ Premix 100 mls @ 100 mls/hr IV QID [facility] Last Admin: 11/05/18 17:10 Dose: 100 mls/hr Sodium Chloride (Normal Saline) 1,000 mls @ 125 mls/hr IV ASDIRECTED [facility] Last Admin: 11/06/18 23:43 Dose: 125 mls/hr Metronidazole 500 mg/ Premix 100 mls @ 100 mls/hr IV QID [facility] Last Admin: 11/07/18 05:43 Dose: 100 mls/hr Lorazepam (Ativan) 1 mg IVPUSH Q4H PRN PRN Reason: CIWAA Morphine Sulfate (Morphine) 2 mg IVPUSH ONETIME ONE Stop: 11/05/18 13:33 Last Admin: 11/05/18 14:05 Dose: 2 mg Morphine Sulfate (Morphine) 3 mg IVPUSH Q2H PRN PRN Reason: Pain (severe 7-10) Morphine Sulfate (Morphine) 2 mg IVPUSH Q2H PRN PRN Reason: Pain Last Admin: 11/05/18 22:23 Dose: 2 mg Ondansetron HCl (Zofran) 4 mg IVPUSH Q4H PRN PRN Reason: Nausea Sodium Chloride (Saline Flush) 2.5 ml FLUSH ASDIRECTED PRN PRN Reason: Keep Vein Open Thiamine HCl (Vitamin B-1) 100 mg IV DAILY [facility] Last Admin: 11/07/18 09:00 Dose: 100 mg
== END 2018-11-07 12:15 | disposition home or self-care (01) | DRG 392 ==
LOC: MW.ED 13:11 → UNDOADMOB 14:17 → MW.MS 14:17
PROVIDERS: ADMIT Internal Medicine; ATTEND Internal Medicine
DX: K57.20 Diverticulitis of large intestine with perforation and abscess without bleeding (principal); F17.210 Nicotine dependence, cigarettes, uncomplicated; I48.91 Unspecified atrial fibrillation; I10 Essential (primary) hypertension; E66.01 Morbid (severe) obesity due to excess calories; Z79.899 Other long term (current) drug therapy; Z68.41 Body mass index [BMI] 40.0-44.9, adult
CPT/HCPCS: 36415; 74177; 74177-26; 80053; 81003; 83690; 85025; 87040; 87046; 87324; 87899; 96361; 96374; 96375; 99284-25; J1650; J1956; J2270; J3411; J3490; J7040

== ENCOUNTER 2018-12-12 08:07 | Day surgery (SDC) | payer OTHER ==
[~2018-12-12 08:07] MED LIST: Lactated Ringers 1,000 ML IV SCH
[2018-12-12] MEDS ORDERED: Propofol 200 MG/20 ML SDV ONE (08:16)
[2018-12-12] MEDS ORDERED: Lidocaine 2% 5 ML SDV ONE (08:16)
[2018-12-12] MEDS ORDERED: fentaNYL 100 MCG/2 ML SDV ONE (08:17)
--- NOTE | 2018-12-12 09:48 | PCM.PREANE ---
Preanesthetic Assessment - Anesthesia/Transfusion/Family Hx Anesthesia History: No Prior Anesthesia Family History of Anesthesia Reaction: No Transfusion History: No Prior Transfusion(s) - Review of Systems General: No Symptoms Pulmonary: No Symptoms Cardiovascular: No Symptoms Neurological: No Symptoms Other: Reports: None - Physical Assessment Height: 5 ft 11 in Weight: 116.573 kg ASA Class: 2 Mental Status: Alert & Oriented x3 Airway Class: Mallampati = 2 Dentition: Reports: Normal Dentition ROM/Head Extension: Limited/Partial Lungs: Clear to Auscultation, Normal Respiratory Effort Cardiovascular: Regular Rate, Regular Rhythm - Allergies Allergies/Adverse Reactions: Allergies Allergy/AdvReac Type Severity Reaction Status Date / Time No Known Allergies Allergy Verified 12/09/18 10:15 - Blood Blood Available: No - Anesthesia Plan Pre-Op Medication Ordered: None - Acknowledgements Anesthesia Type Planned: General Anesthesia Pt an Appropriate Candidate for the Planned Anesthesia: Yes Alternatives and Risks of Anesthesia Discussed w Pt/Guardian: Yes Pt/Guardian Understands and Agrees with Anesthesia Plan: Yes Additional Comments: PMH: smoker PLAN: tiva PreAnesthesia Questionnaire - Past Health History Medical/Surgical History: Denies Medical/Surgical History Other HEENT History: top partial Cardiovascular History: Reports: None, Hypertension Other Cardiovascular History: "BP alittle high, but not high enough to put me on medication" Respiratory History: Reports: None Gastrointestinal History: Reports: Diverticulosis Other Gastrointestinal History: hx of diverticulitis with microperforation, campylobacter antigen positive, occasional heartburn relieved with tums or rolaids Genitourinary History: Reports: None Musculoskeletal History: Reports: Arthritis, Fracture Neurological History: Reports: None Psychiatric History: Reports: None Endocrine/Metabolic History: Reports: Obesity/BMI 30+ Hematologic History: Reports: None Immunologic History: Reports: None Oncologic (Cancer) History: Reports: None Dermatologic History: Reports: None - Infectious Disease History Infectious Disease History: Reports: Chicken Pox - Past Surgical History Head Surgeries/Procedures: Reports: None HEENT Surgical History: Reports: None Cardiovascular Surgical History: Reports: None Respiratory Surgical History: Reports: None GI Surgical History: Reports: None Male Surgical History: Reports: Vasectomy Endocrine Surgical History: Reports: None Neurological Surgical History: Reports: None Musculoskeletal Surgical History: Reports: None Oncologic Surgical History: Reports: None Dermatological Surgical History: Reports: None - SUBSTANCE USE Smoking Status *Q: Current Every Day Smoker Tobacco Use Within Last Twelve Months: Cigarettes - HOME MEDS Home Medications: Home Meds . [No Known Home Meds] 12/09/18 [History] - CURRENT (IN HOUSE) MEDS Current Meds: Current Medications Lactated Ringer's (Ringers, Lactated) 1,000 mls @ 125 mls/hr IV ASDIRECTED [facility] Last Admin: 12/12/18 09:44 Dose: 125 mls/hr Discontinued Medications Fentanyl (Sublimaze) Confirm Administered Dose 100 mcg .ROUTE .STK-MED ONE Stop: 12/12/18 08:18 Lidocaine (Xylocaine-Mpf 2%) Confirm Administered Dose 5 ml .ROUTE .STK-MED ONE Stop: 12/12/18 08:17 Propofol (Diprivan 20 Ml) Confirm Administered Dose 400 mg .ROUTE .STK-MED ONE Stop: 12/12/18 08:17
--- NOTE | 2018-12-12 10:49 | PCM.OPNOTE ---
- General Post-Op/Procedure Note Date of Surgery/Procedure: 12/12/18 Operative Procedure(s): egd w bx. colonoscopy w bx Findings: see dict [id number] Pre Op Diagnosis: resolving diverticulitis and gerd Post-Op Diagnosis: Same Anesthesia Technique: Moderate Sedation Primary Surgeon: Swapnil Jeffers Pathology: egd bx and random colon bx for c jejuni +ve Complications: None Condition: Good
--- NOTE | 2018-12-12 11:49 | OR ---
SURGEON: Swapnil Jeffers MD DATE OF PROCEDURE: 12/12/2018 PREOPERATIVE DIAGNOSES: Resolving diverticulitis and gastroesophageal reflux disease. POSTOPERATIVE DIAGNOSES: Resolving diverticulitis and gastroesophageal reflux disease. PROCEDURE PERFORMED: Esophagogastroduodenoscopy with biopsy and colonoscopy with random biopsy. PRIMARY SURGEON: Swapnil Jeffers MD. COMPLICATIONS: None. DESCRIPTION OF PROCEDURE: EGD: The patient was taken to the endoscopy room, and with the HEAD OF CYTOGENETICS, Diprivan was administered. A well-lubricated EGD scope was gently inserted through the oropharynx, down the esophagus, passing through the gastroesophageal junction, into the stomach. The mucosa was examined upon the passage. Any etiology will be noted. Once in the stomach, we continued to advance to the distal antrum, passed through the pylorus into the second portion of the duodenum. Again, the mucosa was examined for any abnormality and etiology. The scope was then retrieved back to the stomach and then retroflexed to look at the fundus of the stomach. If a biopsy was indicated, we will biopsy the antrum, body, and gastroesophageal junction. The air will be sucked out while the scope is retrieved to reduce the patient's discomfort. The patient tolerated the procedure well. There were no intraoperative complications. Dr. Jeffers was present through the whole procedure. Prior to surgery, a time-out had been called, the patient identified, procedure identified and antibiotic administered. The patient was taken to the endoscopy room. A time out was called, patient identified, and procedure identified. Diprivan was then administrated. Patient went from awake to sleep, hearing doctor talking or door closing is normal. Perineum inspection and digital examination were then performed. A well- lubricated colonoscope was gently inserted through the rectum, advanced past the rectosigmoid junction, the descending colon, splenic flexure, transverse colon, hepatic flexure, ascending colon, arrived to the cecum. Cecum was identified as dictated in the finding. Then the scope was carefully withdrawn while attention was paid to the mucosal surface for any abnormality. Air will be sucked out during the scope withdrawal. At the rectum, retroflexed to examine any rectal diseases, fistula or hemorrhoids. During mucosal examination, abnormality or polyp was noted; picture taken and biopsy performed. Patient tolerated procedure well. There were no intraoperative complications, and Dr. Jeffers was present throughout the whole procedure. FINDINGS: EGD findings: 1. The patient is easily sedated with HEAD OF CYTOGENETICS and Diprivan, the patient is soundly snoring. 2. Oropharynx and proximal esophagus are free of disease. GE junction at 40 shows a marked salmon-colored change, flame-like structure, concerned about Mendez esophagitis. Stomach rugae are normal in appearance. There is no bile, food, or blood observed. Antrum was a little bit inflamed. Duodenum was grossly normal. Retroflexed look at the fundus of stomach, there is no hiatal hernia. Biopsy done at antrum, body, and GE junction. At this time, we did two times biopsy of the GE junction at 40 and sucked out the gas while scope pulling out. Colonoscopy findings: 1. The patient is easily sedated with HEAD OF CYTOGENETICS and Diprivan, the patient is soundly snoring. 2. Bowel prep is left to be desirable. Large amount of opaque yellow liquid stool compromised the study. There is no stool ball or semi-formed stool. Colon rather straightforward. Cecum indicated by ileocecal fold, one-to- one indentation, appendiceal orifice. ScopeGuide pointing to south. Light emittance is not observed. Mucosa examined upon scope pulling out. The patient has significant diverticulosis on the left colon, very short segment, just at the sigmoid and left colon. No signs or symptoms of diverticulitis. No polyp, mass, growth, inflammation, stricture, ulceration, AV malformation, none of those. The patient may have some anal tag or anal wart and internal hemorrhoids. The patient would benefit from repeat colonoscopy in 10 years from today or if clinically indicated otherwise. CANDI / HILLARY /[id number]
--- NOTE | 2018-12-12 12:22 | PCM48HPAN ---
Post Anesthesia Note - EVALUATION WITHIN 48HRS OF ANESTHETIC Vital Signs in Normal Range: Yes Patient Participated in Evaluation: Yes Respiratory Function Stable: Yes Airway Patent: Yes Cardiovascular Function Stable: Yes Hydration Status Stable: Yes Pain Control Satisfactory: Yes Nausea and Vomiting Control Satisfactory: Yes Mental Status Recovered: Yes Vital Signs: Last Vital Signs Temp 97.0 F 12/12/18 09:26 Pulse 14 L 12/12/18 11:00 Resp 14 12/12/18 11:00 BP 127/90 12/12/18 11:00 Pulse Ox 96 12/12/18 11:00
--- NOTE | 2018-12-12 12:22 | PCM.POSTAN ---
POST ANESTHESIA ASSESSMENT - MENTAL STATUS Mental Status: Alert, Oriented - VITAL SIGNS Vital Signs: Last Vital Signs Temp 97.0 F 12/12/18 09:26 Pulse 14 L 12/12/18 11:00 Resp 14 12/12/18 11:00 BP 127/90 12/12/18 11:00 Pulse Ox 96 12/12/18 11:00 - RESPIRATORY Respiratory Status: Respiratory Rate WNL, Airway Patent, O2 Saturation Stable - CARDIOVASCULAR CV Status: Pulse Rate WNL, Blood Pressure Stable - GASTROINTESTINAL GI Status: No Symptoms - POST OP HYDRATION Hydration Status: Adequate & Stable
== END 2018-12-12 11:17 | disposition home or self-care (01) ==
LOC: MW.SDS 08:07
PROVIDERS: ATTEND Surgery
DX: K57.32 Diverticulitis of large intestine without perforation or abscess without bleeding (principal); K21.9 Gastro-esophageal reflux disease without esophagitis; K29.50 Unspecified chronic gastritis without bleeding; M19.90 Unspecified osteoarthritis, unspecified site; F17.210 Nicotine dependence, cigarettes, uncomplicated; E66.9 Obesity, unspecified; Z68.35 Body mass index [BMI] 35.0-35.9, adult
CPT/HCPCS: 43239; 45378; J2001; J2704; J3010; J7120